=== PATIENT | female | born 1950 | race Caucasian/White ===

== ENCOUNTER 2016-04-26 12:58 | Observation (INO) | payer OTHER ==
--- NOTE | 2016-04-26 13:08 | CPEKG ---
Heart Rate: 80 RR Interval: 750 P-R Interval: 164 QRSD Interval: 82 QT Interval: 408 QTC Interval: 471 P [place]: 43 QRS [place]: 19 T Wave [place]: 43 EKG Severity - NORMAL ECG - EKG Impression: SINUS RHYTHM Electronically Signed By: Sandro Oliveira 28-Apr-2016 14:20:22
--- NOTE | 2016-04-26 13:24 | EDPHY ---
[id number] and diabetes, complaining of right-sided back pain for the last week and left-sided chest pain onset yesterday. She reports her back pain feels similar to a previous episode of pleurisy, so she began a previously- prescribed course of prednisone to treat that pain. Yesterday the pain moved to the left side of her chest and was localized to one point. This pain is now diffusely located across her left chest. She says she is unable to describe it, but it does feel similar to the pain she experienced prior to her last stent placement. Pain is associated with nausea but no fever. Her flu vaccination is up-to-date. She notes she had a nuclear stress test and echocardiogram last week , but has not received results yet. REVIEW OF SYSTEMS: Aside from elements discussed in the HPI, a comprehensive 10-point review of systems was reviewed and is negative. PMH: 1. Hypothyroidism 2. CAD with stents, last cath October 2014 stents were patent 3. Diabetes 4. Hypertension 5. SVT 6. Asthma 7. Obstructive sleep apnea 8. Appendectomy 9. Right total knee arthroplasty 10. Right total hip arthroplasty 11. Hyperlipidemia 12. Right rotator cuff surgery 13. Cholecystectomy 14. 15. Multiple laparotomies 16. Depression SOCIAL HISTORY: at bedside. Nonsmoker. No alcohol use. Prior medical records reviewed including admission 10/11/[address] Swift Minor Clinical Program Director: Dr. Garcia PHYSICAL EXAM: General:Patient is alert, obese female, in no acute distress. ENT:Eyes are normal to inspection. ENT inspection normal. Neck: Normal inspection. Full range of motion. Respiratory:No respiratory distress. Breath sounds normal bilaterally. Cardiovascular: Regular rate and rhythm. Strong peripheral pulses. Normal cap refill. Abdomen:The abdomen is nontender to palpation. There are no peritoneal signs. There are normal bowel sounds. Back: Normal to inspection. No tenderness to palpation. Skin: Normal color. No rash. Warm and dry. Extremities: Normal appearance. Full range of motion. Neuro: Oriented x3. Normal motor function. Normal sensory function. ED Course: This is a chronically-ill 65 y/o female with several medical conditions including CAD and diabetes who presents with a 1-week history of back pain and a 1-day history of chest pain. She reports the back pain feels similar to previous pleurisy, but the chest pain feels similar to the last time she required a cardiac stent. She had an echo and nuclear stress test last week, but has not received those results yet. Her exam is unremarkable. IV established. Labs drawn including CBC, CHEM, d-dimer, troponin. Chest x-ray and EKG ordered. The 12 lead EKG was interpreted by myself. Sinus rhythm rate 80. See hard copy and/or "tracemaster" electronic copy for interpretation. Study: Chest x-ray Indication: Pain Results: Chest x-ray was obtained. The results of the study are negative, similar to previous. Radiologist report pending. I viewed the images myself on the PACS system. 1345: D-dimer elevated at 3.43. Plan for CTA chest. 1350: Consulted with Dr. Daley, floor molder. He reports her stress test last week was abnormal and showed reversible ischemia in the anterior wall. He recommends admission and likely catheterization. 1427: Spoke with hospitalist service. Dr. Piper accepts admission for chest pain. 1445: Consulted with Dr. Garcia, cardiology. He will assess patient and determine if he will take her to the medical laboratory technician. 1500: Patient signed out to Dr. Barreto at shift change pending CTA results. Study: CTA of the Chest Indication: Pain, elevated d-dimer Results: CT scan of the chest was obtained. The results of the study are negative. The study was read by the radiologist, Dr. Mathew. I viewed the images myself on the PACS system. MDM: This patient presents with chest pain which is particularly concerning given her history of coronary artery disease, prior stents and recent positive nuclear stress test results. CTA is negative for pulmonary embolus or dissection. She will be admitted to the hospitalist service and will require cardiac catheterization. I see no evidence of pulmonary embolus, thoracic aortic dissection, pneumonia, pneumothorax or STEMI at this time. - Data Points Laboratory Results: Laboratory Results 04/26/16 13:13 04/26/16 13:13 04/26/16 13:13 WBC 14.66 H 10^3/uL (3.80-9.50) RBC 5.29 10^6/uL (4.18-5.33) Hgb 14.7 g/dL (12.6-16.3) Hct 42.4 % (38.0-47.0) MCV 80.2 L fL (81.5-99.8) MCH 27.8 L pg (27.9-34.1) MCHC 34.7 g/dL (32.4-36.7) RDW 14.9 % (11.5-15.2) Plt Count 314 10^3/uL (150-400) MPV 10.1 fL (8.7-11.7) Neut % (Auto) 70.4 % (39.3-74.2) Lymph % (Auto) 19.6 % (15.0-45.0) [place] % (Auto) 6.0 % (4.5-13.0) Eos % (Auto) 2.6 % (0.6-7.6) Baso % (Auto) 0.5 % (0.3-1.7) Nucleat RBC Rel Count 0.0 % (0.0-0.2) Absolute Neuts (auto) 10.32 H 10^3/uL (1.70-6.50) Absolute Lymphs (auto) 2.88 10^3/uL (1.00-3.00) Absolute Monos (auto) 0.88 H 10^3/uL (0.30-0.80) Absolute Eos (auto) 0.38 10^3/uL (0.03-0.40) Absolute Basos (auto) 0.07 10^3/uL (0.02-0.10) Absolute Nucleated RBC 0.00 10^3/uL (0-0.01) Immature Gran % 0.9 % (0.0-1.1) Immature Gran # 0.13 H 10^3/uL (0.00-0.10) D-Dimer 3.43 H ug/mLFEU (0.00-0.50) Sodium 128 L mEq/L (134-144) Potassium 4.4 mEq/L (3.5-5.2) Chloride 89 L mEq/L (97-110) Carbon Dioxide 24 mEq/l (22-31) Anion Gap 15 mEq/L (8-16) BUN 14 mg/dL (7-23) Creatinine 0.8 mg/dL (0.6-1.0) Estimated GFR > 60 Glucose 237 H mg/dL (70-100) Calcium 9.2 mg/dL (8.5-10.4) Troponin I < 0.012 ng/mL (0-0.034) General Time Seen by Provider: 04/26/16 13:03 Initial Vital Signs: Initial Vital Signs Temperature (C) 36.3 C 04/26/16 13:03 Heart Rate 80 04/26/16 13:03 Respiratory Rate 16 04/26/16 13:03 Blood Pressure 130/80 H 04/26/16 13:03 O2 Sat (%) 95 04/26/16 13:03 O2 Delivery Mode Room Air Allergies/Adverse Reactions: penicillin G [Penicillin G] Allergy (Intermediate, Verified 01/21/15 22:48) Rash Sulfa (Sulfonamide Antibiotics) Allergy (Intermediate, Verified 01/21/15 22:48) Rash adhesive [Adhesive] Allergy (Mild, Verified 01/21/15 22:48) Rash codeine [Codeine] Allergy (Mild, Verified 01/21/15 22:48) ? Rash; n/v hydrocodone [Hydrocodone] Allergy (Mild, Verified 01/21/15 22:48) makes her jumpy oxycodone [Oxycodone] Allergy (Mild, Verified 01/21/15 22:48) insomnia propoxyphene HCl [From Darvon] Allergy (Mild, Verified 01/21/15 22:48) n/v aspartame Allergy (Verified 03/04/15 16:37) Other-Enter Comments hydromorphone HCl [From Dilaudid] Allergy (Verified 01/21/15 22:48) tapentadol HCl [From Nucynta] Allergy (Verified 01/21/15 22:48) artificial sweeteners Allergy (Severe, Uncoded 01/12/12 15:41) seizurs Home Medications: Medication Instructions Recorded Albuterol [Proventil Inhaler HFA 1 - 2 puffs IH Q4 PRN 01/12/12 (*)] Clopidogrel Bisulfate [Plavix (*)] 75 mg PO DAILY 01/12/12 Dimenhydrinate [Dramamine] 50 mg PO DAILY PRN 01/12/12 Magnesium Oxide [Magnesium Oxide 800 mg PO DAILY 01/12/12 400 mg (*)] Montelukast Sodium [Singulair 10 10 mg PO HS 01/12/12 mg (*)] Nitroglycerin [Nitrostat 0.4 mg 0.4 mg SL PRN PRN 01/12/12 (*)] Cyclobenzaprine [Flexeril 10 MG 10 mg PO HS PRN 06/14/13 (*)] Herbals/Supplements -Info Only 1 each PO AD 06/14/13 Metformin HCl [Metformin 1000 mg] 1,000 mg PO BIDMEAL 06/14/13 diphenhydrAMINE [Benadryl 25 MG 50 mg PO DAILY PRN 06/14/13 (*)] Beclomethasone Dipropionate [Qnasl] 2 spray NS HS PRN 12/15/13 Ipratropium/Albuterol [Duoneb (*)] 3 ml IH QID PRN 12/15/13 Pantoprazole Sodium [Protonix 40mg 40 mg PO DAILY@0712/15/13 (*)] Metoprolol Tartrate [Lopressor 50 50 mg PO BID #60 tab 12/16/13 mg (*)] Aspirin [Aspirin 81mg (*)] 81 mg PO HS 10/24/14 Cetirizine [ZyrTEC 10 mg (*)] 10 mg PO DAILY PRN 10/24/14 Rifaximin [Xifaxan] 550 mg PO BID 10/24/14 sitaGLIPtin PHOSPHATE [Januvia 100 100 mg PO DAILY 10/24/14 MG (*)] Acetaminophen [Tylenol 325mg (*)] 650 mg PO Q6 PRN 03/04/15 CLINDAMYCIN HCL 600 mg PO ONCE PRN 03/04/15 Insulin Lispro [Humalog Kwikpen 8 - 14 unit SQ AC@03/04/15 U-100] Multivitamins [Multivitamin (*)] 1 each PO DAILY@03/04/15 PRIMIDONE 50 mg PO HS 03/04/15 Lisinopril 20 mg PO DAILY #30 tablet 03/05/15 Estradiol [Estrace Vaginal (*)] 1 gm VAG SUWE@10/11/15 Fluoxetine HCl [Prozac 40 mg] 40 mg PO DAILY 10/11/15 Fluticasone/Salmeter 500/50Mcg 1 puffs IH HS 10/11/15 [Advair 500/50 (*)] Insulin Glargine [Lantus 100 36 units SC HS 07/02/16 UNITS/ML (*)] Levothyroxine [Synthroid 75 mcg 75 mcg PO DAILY@10/11/15 (*)] Mag Hydrox/Al Hydrox/Simeth 1 tbs PO Q6PRN PRN 10/11/15 [Maalox Maximum Strength Suspension] Magnesium Oxide [Magnesium Oxide 400 mg PO DAILY@10/11/15 400 mg (*)] Nitrofurantoin Macrocrystal 100 mg PO BID PRN 10/11/15 [Macrodantin 100 mg (*)] Nystatin [Mycostatin Oral Liquid 5 ml PO TID 10/11/15 (*)] Promethazine HCl [Phenergan 12.5mg 12.5 mg PO TID PRN 10/11/15 tab] predniSONE [Prednisone] 10 mg PO HS PRN 10/11/15 Furosemide [Lasix 20 MG (*)] 20 mg PO DAILY #30 tab 10/12/15 amLODIPine BESYLATE [Norvasc 5 mg 5 mg PO DAILY #30 tab 10/12/15 (*)] Departure - Departure Disposition: Home, Routine, Self-Care Clinical Impression: Chest pain Qualifiers: Chest pain type: other chest pain Qualifier Code: (R07.89) Other chest pain Condition: Fair Report Scribed for: Casa Dennis Report Scribed by: Sujatha Santillan Date of Report: 04/26/16 Time of Report: 13:24 Physician Review and Approval Statement: Portions of this note were transcribed by an ED scribe. I personally performed the history, physical exam, and medical decision making; and confirm the accuracy of the information in the transcribed note.
[2016-04-26 13:27] LABS: % IMMATURE GRANULYOCYTES 0.9 % (0.0-1.1); ABSOLUTE IMMATURE GRANULOCYTES 0.13 10^3/uL (0.00-0.10); ADD DIFF? NO; ADD MORPH? NO; ADD SCAN? NO; ATYPICAL LYMPHOCYTE FLAG 10 (0-99); FRAGMENT RBC FLAG 0 (0-99); HEMATOCRIT 42.4 % (38.0-47.0); HEMOGLOBIN 14.7 g/dL (12.6-16.3); LEFT SHIFT FLG 0 (0-99); LIPEMIA HEMOLYSIS FLAG 90 (0-99); MEAN CELL HEMOGLOBIN 27.8 pg (27.9-34.1); MEAN CELL HEMOGLOBIN CONCENTR. 34.7 g/dL (32.4-36.7); MEAN CELL VOLUME 80.2 fL (81.5-99.8); MEAN PLATELET VOLUME 10.1 fL (8.7-11.7); PLATELET CLUMPS FLAG 0 (0-99); PLATELET COUNT 314 10^3/uL (150-400); RED BLOOD CELL COUNT 5.29 10^6/uL (4.18-5.33); RED CELL DISTRIBUTION WIDTH 14.9 % (11.5-15.2)
[2016-04-26 13:45] LABS: ANION GAP 15 mEq/L (8-16); CALCIUM 9.2 mg/dL (8.5-10.4); CARBON DIOXIDE 24 mEq/l (22-31); CHLORIDE 89 mEq/L (97-110); CREATININE 0.8 mg/dL (0.6-1.0); GLOMERULAR FILTRATION RATE > 60; GLUCOSE 237 mg/dL (70-100); POTASSIUM 4.4 mEq/L (3.5-5.2); SODIUM 128 mEq/L (134-144)
[2016-04-26] MEDS ORDERED: IOPAMIDOL (ISOVUE-370) 150 ML BTL IV ONE (13:57)
[2016-04-26 13:58] LABS: TROPONIN I < 0.012 ng/mL (0-0.034)
--- NOTE | 2016-04-26 14:23 | DX ---
Chest, PA and Lateral History: Chest pain. Nausea. History of coronary artery disease. Comparison: October 11, 2015, March 24, 2015 Findings: Lungs clear. Heart normal. Sylvia hilar bronchial wall thickening and mildly prominent lung v olumes are stable and suggest underlying COPD and or airways disease. Stable right upper lobe density is consistent with asymmetrical 1st costochondral cartilage ossification on the right. No pneumothor ax or pleural effusion. EKG leads overlie the chest. Impression: Possible airways disease. No pneumonia.
[2016-04-26] MEDS ORDERED: ASPIRIN 325 MG TAB PO ONE ×2 (14:53→17:30)
[2016-04-26] MEDS ORDERED: ONDANSETRON 4 MG/2 ML VIAL IVP PRN (14:53)
[2016-04-26] MEDS ORDERED: METOPROLOL TARTRATE 5 MG/5 ML INJ IVP SCH (15:00)
--- NOTE | 2016-04-26 15:08 | CT ---
CT Pulmonary Angiogram History: Chest pain, elevated D-dimer, currently on anticoagulation, history of pulmonary embolus. Comparison: PA and lateral chest from the same day, CT angiogram chest of October 11, 2015 and August 11 and June 09, 2011. Technique: Axial contrast-enhanced images were obtained through the chest following the uneventful in travenous administration of 90 mL Isovue-370. Creatinine is 0.8. Multiplanar reformations were perfo rmed through the pulmonary arteries. Dose reduction techniques were utilized. Findings: This is a good quality study with visualization of the vessels to the subsegmental level. T here is no pulmonary embolus. A 4-mm noncalcified left upper lobe nodule (series 5 image 30) is uncha nged since 2011. Diffuse peribronchial thickening is present. There is decreased mosaic attenuation, which could be related to airways disease/bronchitis. Heart size is normal. The interventricular sept um is normal. Coronary artery atherosclerosis is again noted. The aorta is normal caliber without dis section. No pathologically enlarged lymph nodes are identified. Mild degenerative change is present i n the spine. The liver is enlarged with nodular contour, suspicious for cirrhosis. Mildly prominent lymph nodes in the naresh hepatis are unchanged. Impression: 1. No visible pulmonary embolus. 2. Peribronchial thickening and mosaic attenuation, likely related to airways disease. 3. Nodular liver contour, which could be related to cirrhosis. 4. Additional findings as above. Findings discussed with Dr. Casa Dennis today at 1454 hours.
--- NOTE | 2016-04-26 15:14 | PDGENHP ---
[id number] with h/o CAD, hypertension and diabetes presents to ED with chest pain. She has known CAD with 2 prior stents. Her last angiogram was 2014 at which time there was minimal in-stent stenosis. She then underwent Lexiscan in 10/2015, which was indeterminate. Per ED hx, the patient underwent another stress test just last week, which showed some reversible ischemia. She presents to the ED reporting chest pain, onset at rest. She denies associated diaphoresis, though endorses some mild nausea. She describes the pain as substernal, left side of her chest with some radiation into both jaws. She denies SOB at rest, but reports increasing dyspnea with exertion over the past 2-3 weeks. No cough, no fevers. Initial troponin in the ED is negative. She has a h/o asthma and takes chronic prednisone. She is also an insulin dependent diabetic. She is followed by Dr. Prabhu Garcia, who was consulted by the ED physician. She will be admitted for probable angiogram. History Information - Allergies/Home Medication List Allergies/Adverse Reactions: penicillin G [Penicillin G] Allergy (Intermediate, Verified 01/21/15 22:48) Rash Sulfa (Sulfonamide Antibiotics) Allergy (Intermediate, Verified 01/21/15 22:48) Rash adhesive [Adhesive] Allergy (Mild, Verified 01/21/15 22:48) Rash codeine [Codeine] Allergy (Mild, Verified 01/21/15 22:48) ? Rash; n/v hydrocodone [Hydrocodone] Allergy (Mild, Verified 01/21/15 22:48) makes her jumpy oxycodone [Oxycodone] Allergy (Mild, Verified 01/21/15 22:48) insomnia propoxyphene HCl [From Darvon] Allergy (Mild, Verified 01/21/15 22:48) n/v aspartame Allergy (Verified 03/04/15 16:37) Other-Enter Comments hydromorphone HCl [From Dilaudid] Allergy (Verified 01/21/15 22:48) tapentadol HCl [From Nucynta] Allergy (Verified 01/21/15 22:48) artificial sweeteners Allergy (Severe, Uncoded 01/12/12 15:41) seizurs Home Medications: Albuterol [Proventil Inhaler HFA (*)] 1 - 2 puffs IH DAILY PRN 01/12/12 [Last Taken 11/03/14] Clopidogrel Bisulfate [Plavix (*)] 75 mg PO DAILY 01/12/12 [Last Taken 04/26/16] Dimenhydrinate [Dramamine] 50 mg PO DAILY PRN 01/12/12 [Last Taken 12/14/13] Magnesium Oxide [Magnesium Oxide 400 mg (*)] 800 mg PO DAILY 01/12/12 [Last Taken 04/26/16] Montelukast Sodium [Singulair 10 mg (*)] 10 mg PO HS 01/12/12 [Last Taken ] Nitroglycerin [Nitrostat 0.4 mg (*)] 0.4 mg SL PRN PRN 01/12/12 [Last Taken Unknown] Cyclobenzaprine [Flexeril 10 MG (*)] 10 mg PO HS PRN 06/14/13 [Last Taken ] Herbals/Supplements -Info Only 1 each PO AD 06/14/13 [Last Taken 03/04/15] diphenhydrAMINE [Benadryl 25 MG (*)] 50 mg PO DAILY PRN 06/14/13 [Last Taken ] Ipratropium/Albuterol [Duoneb (*)] 3 ml IH DAILY PRN 12/15/13 [Last Taken ] Aspirin [Aspirin 81mg (*)] 81 mg PO HS 10/24/14 [Last Taken 04/25/16] Rifaximin [Xifaxan] 550 mg PO BID 10/24/14 [Last Taken 04/26/16] CLINDAMYCIN HCL 600 mg PO ONCE PRN 03/04/15 [Last Taken 03/04/15] Insulin Lispro [Humalog Kwikpen U-100] 20 - 24 unit SQ AC@03/04/15 [Last Taken 04/26/16] Multivitamins [Multivitamin (*)] 1 each PO DAILY18 03/04/15 [Last Taken 04/25/16 ] PRIMIDONE 50 mg PO HS 03/04/15 [Last Taken 04/25/16] Estradiol [Estrace Vaginal (*)] 1 gm VAG SUWE@10/11/15 [Last Taken 04/25/16] Fluticasone/Salmeter 500/50Mcg [Advair 500/50 (*)] 1 puffs IH HS 10/11/15 [Last Taken 04/25/16] Insulin Glargine [Lantus 100 UNITS/ML (*)] 45 units SC HS 10/11/15 [Last Taken 04/25/16] Mag Hydrox/Al Hydrox/Simeth [Maalox Maximum Strength Suspension] 1 tbs PO DAILY PRN 10/11/15 [Last Taken Unknown] Magnesium Oxide [Magnesium Oxide 400 mg (*)] 400 mg PO DAILY18 10/11/15 [Last Taken 04/25/16] Nitrofurantoin Macrocrystal [Macrodantin 100 mg (*)] 100 mg PO BID PRN 10/11/15 [Last Taken Unknown] predniSONE [Prednisone] 10 mg PO HS PRN 10/11/15 [Last Taken 04/25/16] FLUoxetine [Prozac 20 MG (*)] 40 mg PO DAILY 04/26/16 [Last Taken 04/25/16] Ibuprofen [Motrin (*)] 400 - 800 mg PO DAILY PRN 04/26/16 [Last Taken 04/25/16 21:00 800MG] LISINOPRIL/HYDROCHLOROTHIAZIDE [PRINZIDE 20-25 MG TABLET] 1 each PO DAILY [Last Taken 04/26/16] Lansoprazole [Prevacid] 15 mg PO DAILY 04/26/16 [Last Taken 04/26/16] Levothyroxine [Synthroid 100 mcg (*)] 100 mcg PO DAILY06 04/26/16 [Last Taken ] Promethazine HCl [Phenergan 25mg (*)] 25 mg PO TID PRN 04/26/16 [Last Taken 21:00] amLODIPine BESYLATE [Norvasc 5 mg (*)] 5 mg PO HS 04/26/16 [Last Taken 04/25/16] metFORMIN HCL [Glucophage 500 mg (*)] 1,000 mg PO BIDMEAL 04/26/16 [Last Taken 04/26/16] traMADol [Ultram 50 mg (*)] 50 - 100 mg PO DAILY PRN 04/26/16 [Last Taken 21:00 100MG] I have personally reviewed and updated: family history, medical history, social history, surgical history - Past Medical History asthma, coronary artery disease, diabetes type 2, hypertension, hyperlipidemia, SVT - Surgical History Reports: cholecystectomy, coronary stent Additional surgical history: H/O Rt TKA, Rt MORENA, C-S, Rt rotator cuff surgery, prior angiogram with stent placement, multiple laparotomies - Family History Additional family history: Mom of complications from Parkinson's in her 80' s. Dad of heart failure in his 90's. 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 independently.) Review of Systems ROS: 10pt was reviewed & negative except for what was stated in HPI & below Physical Exam Temp Pulse Resp BP Pulse Ox 36.3 C 80 16 130/80 H 95 04/26/16 13:03 04/26/16 13:03 04/26/16 13:03 04/26/16 13:03 04/26/16 13:03 Constitutional: no apparent distress Eyes: PERRL Ears, Nose, Mouth, Throat: moist mucous membranes Cardiovascular: regular rate and rhythym, no murmur, rub, or gallop Respiratory: no respiratory distress, reduced air movement Gastrointestinal: normoactive bowel sounds, soft, non-tender abdomen Skin: warm Musculoskeletal: full muscle strength Neurologic: AAOx3 Psychiatric: interacting appropriately Lab Data & Imaging Review 04/26/16 13:13 04/26/16 13:13 WBC 14.66 10^3/uL (3.80-9.50) H 04/26/16 13:13 RBC 5.29 10^6/uL (4.18-5.33) 04/26/16 13:13 Hgb 14.7 g/dL (12.6-16.3) 04/26/16 13:13 Hct 42.4 % (38.0-47.0) 04/26/16 13:13 MCV 80.2 fL (81.5-99.8) L 04/26/16 13:13 MCH 27.8 pg (27.9-34.1) L 04/26/16 13:13 MCHC 34.7 g/dL (32.4-36.7) 04/26/16 13:13 RDW 14.9 % (11.5-15.2) 04/26/16 13:13 Plt Count 314 10^3/uL (150-400) 04/26/16 13:13 MPV 10.1 fL (8.7-11.7) 04/26/16 13:13 Neut % (Auto) 70.4 % (39.3-74.2) 04/26/16 13:13 Lymph % (Auto) 19.6 % (15.0-45.0) 04/26/16 13:13 [place] % (Auto) 6.0 % (4.5-13.0) 04/26/16 13:13 Eos % (Auto) 2.6 % (0.6-7.6) 04/26/16 13:13 Baso % (Auto) 0.5 % (0.3-1.7) 04/26/16 13:13 Nucleat RBC Rel Count 0.0 % (0.0-0.2) 04/26/16 13:13 Absolute Neuts (auto) 10.32 10^3/uL (1.70-6.50) H 04/26/16 13:13 Absolute Lymphs (auto) 2.88 10^3/uL (1.00-3.00) 04/26/16 13:13 Absolute Monos (auto) 0.88 10^3/uL (0.30-0.80) H 04/26/16 13:13 Absolute Eos (auto) 0.38 10^3/uL (0.03-0.40) 04/26/16 13:13 Absolute Basos (auto) 0.07 10^3/uL (0.02-0.10) 04/26/16 13:13 Absolute Nucleated RBC 0.00 10^3/uL (0-0.01) 04/26/16 13:13 Immature Gran % 0.9 % (0.0-1.1) 04/26/16 13:13 Immature Gran # 0.13 10^3/uL (0.00-0.10) H 04/26/16 13:13 D-Dimer 3.43 ug/mLFEU (0.00-0.50) H 04/26/16 13:13 Sodium 128 mEq/L (134-144) L 04/26/16 13:13 Potassium 4.4 mEq/L (3.5-5.2) 04/26/16 13:13 Chloride 89 mEq/L (97-110) L 04/26/16 13:13 Carbon Dioxide 24 mEq/l (22-31) 04/26/16 13:13 Anion Gap 15 mEq/L (8-16) 04/26/16 13:13 BUN 14 mg/dL (7-23) 04/26/16 13:13 Creatinine 0.8 mg/dL (0.6-1.0) 04/26/16 13:13 Estimated GFR > 60 04/26/16 13:13 Glucose 237 mg/dL (70-100) H 04/26/16 13:13 Calcium 9.2 mg/dL (8.5-10.4) 04/26/16 13:13 Troponin I < 0.012 ng/mL (0-0.034) 04/26/16 13:13 Assessment & Plan Assessment: Chest pain - Pt has h/o CAD with prior stents, on dual anti-platelet therapy, and recent abnormal nuclear stress test in the outpatient setting. Initial troponin is negative. EKG shows some non-specific T wave abnormalities (?mild wellen's T wave in V2), but no acute ischemic changes. Her pain is unchanged since arrival, 2-. -Admit to PCU -Give full dose ASA now -Keep NPO -IV Metoprolol -Nitropaste, morphine for pain control -Trend troponin, repeat EKG -Cards to consult, will defer anti-coagulation and timing of angiogram to them Hypertension - A bit elevated on arrival. -Will continue anti-hypertensives when taking po. -IV Metoprolol for now Hyperlipidemia - cont statin DM - bg >200 on arrival. last a1c in 02/2016 was 9.1. -basal / bolus insulin Hyponatremia - this is chronic, though a bit lower than her baseline of ~130 and seems to be trending down over past year. -Hold HCTZ -Fluid restrict, follow -check urine osm / urine Na H/O SVT - cont beta darian Asthma - on chronic steroids. no acute exacerbation, cont home meds / inhalers / prednisone Leukocytosis - chronic, suspect secondary to chronic steroid use BRIDGETT - cont home CPAP if available DVT PPLX - SCD's for now, defer lovenox as she will likely undergo intervention Full code Dispo - admit to inpt as will likely require angiogram and suspect >48 hrs hospitalization
[2016-04-26] MEDS ORDERED: D50W 25 GM/50 ML SYR IVP PRN ×2 (15:21→16:11)
[2016-04-26] MEDS ORDERED: PROMETHAZINE HCL 25 MG TAB PO PRN (15:29)
[2016-04-26] MEDS ORDERED: IPRATROPIUM/ALBUTEROL 3 ML DEYVIAL IH PRN (15:29)
[2016-04-26] MEDS ORDERED: ALBUTEROL 60 PUFFS/8 GM MDI IH PRN (15:29)
[2016-04-26] MEDS ORDERED: INSULIN REGULAR HUMAN 100 UNIT/ML SC SCH (15:30)
[2016-04-26] MEDS: ATORVASTATIN CALCIUM 40 MG TAB PO SCH (17:09)
[2016-04-26] MEDS: INSULIN LISPRO 100 UNIT/ML SC SCH (17:11)
[2016-04-26] MEDS: NITROGLYCERIN 2% 1 GM PACKET TP SCH ×2 (17:14→17:31)
[2016-04-26] MEDS ORDERED: MAG HYDROX/AL HYDROX/SIMETH 30 ML UDCUP PO PRN (18:00)
[2016-04-26] MEDS ORDERED: FLUTICASONE/SALMETER 500/50MCG DISKUS IH SCH (21:00)
[2016-04-26] MEDS ORDERED: INSULIN GLARGINE 100 UNITS/ML SYRINGE SC SCH (21:00)
[2016-04-26] MEDS ORDERED: predniSONE 10 MG TAB PO PRN (21:00)
[2016-04-26] MEDS ORDERED: amLODIPine BESYLATE 5 MG TAB PO SCH (21:00)
[2016-04-26] MEDS ORDERED: CYCLOBENZAPRINE 10 MG TAB PO PRN (21:00)
[2016-04-26] MEDS ORDERED: TEMAZEPAM 15 MG CAP PO PRN (21:09)
[2016-04-26] MEDS: METOPROLOL TARTRATE 50 MG TAB PO SCH (21:50)
[2016-04-26] MEDS ORDERED: traMADol 50 MG TAB PO PRN (22:25)
[2016-04-27] MEDS: NITROGLYCERIN 2% 1 GM PACKET TP SCH ×3 (00:13→12:20)
[2016-04-27 05:08] LABS: % IMMATURE GRANULYOCYTES 0.7 % (0.0-1.1); ABSOLUTE IMMATURE GRANULOCYTES 0.09 10^3/uL (0.00-0.10); ADD DIFF? NO; ADD MORPH? NO; ADD SCAN? NO; ATYPICAL LYMPHOCYTE FLAG 0 (0-99); FRAGMENT RBC FLAG 0 (0-99); HEMATOCRIT 39.9 % (38.0-47.0); HEMOGLOBIN 13.6 g/dL (12.6-16.3); LEFT SHIFT FLG 0 (0-99); LIPEMIA HEMOLYSIS FLAG 90 (0-99); MEAN CELL HEMOGLOBIN 27.6 pg (27.9-34.1); MEAN CELL HEMOGLOBIN CONCENTR. 34.1 g/dL (32.4-36.7); MEAN CELL VOLUME 81.1 fL (81.5-99.8); MEAN PLATELET VOLUME 10.4 fL (8.7-11.7); PLATELET CLUMPS FLAG 0 (0-99); PLATELET COUNT 257 10^3/uL (150-400); RED BLOOD CELL COUNT 4.92 10^6/uL (4.18-5.33); RED CELL DISTRIBUTION WIDTH 14.9 % (11.5-15.2)
[2016-04-27 05:16] LABS: INR 1.07 (0.83-1.16); PROTIME(PATIENT) 13.8 SEC (12.0-15.0)
[2016-04-27 05:17] LABS: APTT 27.2 SEC (23.0-38.0)
[2016-04-27 05:22] LABS: ANION GAP 12 mEq/L (8-16); CALCIUM 8.9 mg/dL (8.5-10.4); CARBON DIOXIDE 24 mEq/l (22-31); CHLORIDE 89 mEq/L (97-110); CHOLESTEROL 174 mg/dL (140-220); CHOLESTEROL/HDL RATIO 2.64 RATIO (1.00-4.44); CREATININE 0.7 mg/dL (0.6-1.0); GLOMERULAR FILTRATION RATE > 60; GLUCOSE 246 mg/dL (70-100); HIGH DENSITY LIPOPROTEIN 66 mg/dL (40-85); LDL/HDL RATIO 1.27 RATIO (1.00-3.22); LOW DENSITY LIPOPROTEIN 84 mg/dL (80-100); MAGNESIUM 1.5 mg/dL (1.6-2.3); NON-HIGH DENSITY LIPOPROTEIN 108 mg/dL (90-129); POTASSIUM 4.1 mEq/L (3.5-5.2); SODIUM 125 mEq/L (134-144); TRIGLYCERIDE 120 mg/dL (35-135); VERY LOW DENSITY LIPOPROTEINS 24 mg/dL (8-25)
[2016-04-27] MEDS ORDERED: LEVOTHYROXINE 100 MCG TAB PO SCH (06:00)
[2016-04-27] MEDS ORDERED: FAMOTIDINE 20 MG TAB ONE (07:41)
[2016-04-27] MEDS ORDERED: diphenhydrAMINE 25 MG CAP PO ONE ×2 (07:41→11:00)
[2016-04-27] MEDS ORDERED: ASPIRIN EC 325 MG TAB PO ONE ×2 (07:41→11:00)
[2016-04-27] MEDS ORDERED: DIAZEPAM 5 MG TAB ONE (07:41)
[2016-04-27] MEDS ORDERED: HEPARIN 10,000 UNIT/10 ML MDV ONE (07:51)
[2016-04-27] MEDS ORDERED: LIDOCAINE 1% 30 ML SDV ONE (07:51)
[2016-04-27] MEDS ORDERED: MIDAZOLAM 2 MG/2 ML VIAL ONE ×2 (07:51→09:45)
[2016-04-27] MEDS ORDERED: fentaNYL 100 MCG/2 ML INJ ONE ×2 (07:51→09:45)
[2016-04-27] MEDS ORDERED: VERAPAMIL 5 MG/2 ML VIAL ONE ×2 (07:51→08:52)
[2016-04-27] MEDS ORDERED: IOPAMIDOL (ISOVUE-370) 150 ML BTL IV ONE ×2 (07:52→08:52)
[2016-04-27] MEDS ORDERED: DIMENHYDRINATE 50 MG PO PRN (08:00)
[2016-04-27] MEDS: INSULIN LISPRO 100 UNIT/ML SC SCH ×2 (08:04→13:19)
[2016-04-27] MEDS: RIFAXIMIN 550 MG TAB PO SCH ×2 (08:04→12:18)
[2016-04-27] MEDS ORDERED: NITROGLYCERIN 1,500 MCG/15 ML VIAL MISC ONE (08:52)
[2016-04-27] MEDS ORDERED: MAGNESIUM OXIDE 400 MG TAB PO SCH ×2 (09:00→18:00)
[2016-04-27] MEDS ORDERED: CLOPIDOGREL BISULFATE 75 MG TAB PO SCH (09:00)
[2016-04-27] MEDS ORDERED: PANTOPRAZOLE SODIUM 40 MG TAB PO SCH (09:00)
[2016-04-27] MEDS ORDERED: FLUoxetine 20 MG CAP PO SCH (09:00)
--- NOTE | 2016-04-27 09:03 | SUROPNOTE ---
[facility] Operative Report - Surgery Date of Procedure: 04/27/2016 Indication: This woman is a 65 year old woman, with known coronary artery disease, s/p ramus intermedius stenting x2 in 2011 and 2013, hyperlipidemia, insulin dependent diabetes, BRIDGETT, asthma, paroxysmal atrial fibrillation, and PSVT, presenting to the emergency department yesterday with resting left anterior chest pain, described as similar in character to previous anginal symptoms. Eagle cardiovascular class IV angina. It is associated with 2-3 weeks of class III dyspnea on exertion. The patient had nuclear stress testing , which demonstrated diffuse T wave inversions with pharmacologic stress, a small mild intensity reversible defect involving the mid anterior wall consistent with ischemia, and transient ischemic dilation of the left ventricle with stress. These findings were new compared to previous stress testing. Right/ left heart catheterization indicated secondary to class IV angina, class III dyspnea, and high risk non-invasive testing. Procedures performed: 1. Right and Left heart catheterization with left ventricular and selective coronary angiography. 2. Fractional flow reserve in the right coronary artery. 3. Fractional flow reserve in the ramus intermedius. 4. Fractional flow reserve in the left anterior descending. Description of procedure: Description, risks, benefits and alternatives were discussed in detail. Informed consent was obtained. The patient was brought to the catheterization laboratory where a timeout was performed. The right arm was sterilely prepped and draped. 2% lidocaine utilized for local anesthetic. A 5-Peruvian hemostatic sheath was placed in the right brachial vein utilizing the IV site already present. A 5-Peruvian PWP catheter was utilized for right heart catheterization. Following the right heart catheterization, a 5/6-Peruvian slender hemostatic sheath placed right radial artery utilizing micropuncture technique. Intraarterial verapamil and intravenous heparin was administered. Diagnostic coronary angiography performed with 6-Peruvian, Grady left-3.5 and Grady right -4 catheter. All catheters passed over a 0.035 guidewire. By angiography, approximately 60% distal right coronary artery stenosis, a proximal LAD 60% eccentric stenosis, and an area of restenosis in the ramus oam-uh-axnsir stented segment, concerning for hemodynamically significant stenosis. Plan was made for fractional flow reserve of the RCA, ramus, and LAD for further evaluation. A 6-Peruvian Grady Right-4 guide catheter was utilized to engage the right coronary artery. [facility] Sergei FFR wire was advanced to just outside the guide catheter and pressure was equalized. FFR wire was placed in the right coronary artery. 140mcg*kg/min Adenosine was administered IV. FFR was 1.02, no significant change from resting. Next, a 6-Peruvian Grady Left-3.5 guide catheter was utilized to engage the left coronary system. [facility] Sergei FFR wire was advanced to just outside the guide catheter and pressure was equalized. FFR wire was placed in the ramus intermedius. 140mcg*kg/min Adenosine was administered IV. FFR was 0.97. FFR wire was placed in the left anterior descending. 140mcg*kg/min Adenosine was administered IV. FFR was 0.87. Pigtail catheter was then utilized for left heart catheterization and left ventricular angiography. Arterial sheath was removed and TR band was placed. Venous sheath was removed in the CVC. Findings: 1. Hemodynamics: Right atrial pressure mean of 10, right ventricular pressure 36/7/14 end-diastolic, pulmonary artery pressure 36/20, mean of 27, pulmonary capillary wedge pressure mean of 13 with no significant V wave. Aortic pressure 114/67, mean of 87, left ventricular pressure 113/12/25 end-diastolic. There was no significant pull back gradient across the aortic valve. 2. Saturations: Superior vena cava 73.3%, main pulmonary artery 69.5%, Ao 95.8% . Assumed Jeannie cardiac output 5.3L/min with cardiac index of 2.5L/min/m2. 3. Left ventricle: The left ventricle appears normal in size. Left ventricle is normal shape. Segmental wall motion is normal with an ejection fraction of 65 %. There are no filling defects or significant mitral regurgitation. The aortic root and ascending aorta appears normal, there is no dissection or aneurysm formation. 4. Coronary angiography: Left main: The left main is a moderate diameter, moderate length trifurcating vessel without significant disease. 5. Left anterior descending: This is a moderate sized vessel continuing around the apex. there is a small proximal and a moderate distal diagonal branch. There are luminal irregularities including a proximal eccentric 60% stenosis. FFR was 0.87, demonstrating non-hemodynamically significant disease. 6. Ramus Intermedius: A moderate-sized tortuous vessel with two previously placed stents, which both appear patent. There is an area of focal 50% restenosis in the lxy-yp-cmweeg stented segment. The ostial ramus intermedius has up to 30% disease. FFR was 0.97, demonstrating non-hemodynamically significant disease. 7. Circumflex: The circumflex is a fairly large nondominant vessel with a small marginal followed by a large marginal and then an AV groove branch. There are only mild luminal irregularities. 8. Right coronary: This is a moderately large dominant vessel with a moderate to large posterior descending and a moderate bifurcating posterolateral branch. The vessel has luminal irregularities and a 60% distal right coronary stenosis. FFR was 1.02, with no significant change from resting IFR. Overall Impression: 1. Lcwl-xw-pmpqsgaj coronary artery disease, with no hemodynamically significant disease in the RCA, LAD, or ramus intermedius by fractional flow reserve. 2. Mild pulmonary hypertension with pulmonary artery systolic pressure of 36mmHg. 3. Normal left ventricular systolic function with ejection fraction of 65%. Plan: 1. Continue aggressive risk modification, high dose statin therapy, management of hypertension and diabetes, and weight loss. 2. Consider Ranexa for small vessel disease. 3. Evaluation of other possible etiologies of chest pain and dyspnea. Portions of this chart were entered by a scribe. I have reviewed this chart and agree with the documentation. Report scribed for Dr. Prabhu Garcia. Report scribed by Sandra Hernandez.
[2016-04-27] MEDS ORDERED: ADENOSINE 90 MG/30 ML VIAL IV ONE (09:41)
[2016-04-27] MEDS ORDERED: ATROPINE SULFATE 1 MG/10 ML SYR IVP PRN (10:19)
[2016-04-27] MEDS ORDERED: DIAZEPAM 5 MG TAB PO ONE (11:00)
[2016-04-27] MEDS ORDERED: FAMOTIDINE 20 MG TAB PO ONE (11:00)
[2016-04-27] MEDS: METOPROLOL TARTRATE 50 MG TAB PO SCH (12:18)
[2016-04-27] MEDS: ATORVASTATIN CALCIUM 40 MG TAB PO SCH (12:18)
[2016-04-27] MEDS ORDERED: LISINOPRIL 20 MG TAB PO SCH (12:30)
[2016-04-27 12:47] VITALS: TEMP 97.7
[2016-04-27] MEDS ORDERED: AZITHROMYCIN 250 MG TAB PO SCH (13:00)
[2016-04-27 15:21] VITALS: BP 121/74; PULSE 74; RESP 16; O2SAT 91
[2016-04-27] MEDS ORDERED: diphenhydrAMINE 25 MG CAP PO PRN (15:29)
--- NOTE | 2016-04-27 20:00 | GDS ---
[f rep st] DISCHARGE SUMMARY DISCHARGE DIAGNOSES: 1. Acute bronchitis. 2. Nonobstructive coronary artery disease, status post previous stents. 3. Chest pain with false-positive stress test. 4. Hyponatremia 5. Diabetes type 2, uncontrolled. 6. Asthma. 7. Obstructive sleep apnea on CPAP. HISTORY: The patient is a 65-year-old female who presented with chest pain. This also had a pleuritic component. She had a recent outpatient stress test that showed reversible ischemia. She has a history of coronary artery disease and previous stents. She had a CT angiogram of the chest that was negative for PE. She had recurrence of chest pain, presented to the emergency room, and underwent cardiac catheterization with Dr. Garcia which showed moderate nonobstructive coronary artery disease. Her CT scan does show changes consistent with bronchitis and clinically I do suspect that is the underlying issue. I suspect her pleurisy is infectious in nature. She will be started on antibiotics. She was started on a statin for improved medical management of her coronary artery disease. She has a history of hyponatremia and did have low sodium here. Reportedly, her sodium runs about 130 and here was in the high 120s. Despite known hyponatremia, however, she continued on hydrochlorothiazide. This was discontinued. Her urine sodium is elevated at 62, although this is difficult to interpret since she is on a chronic diuretic. Regardless, the hydrochlorothiazide needs to be discontinued. We will have her follow fluid restriction. We will however follow her serum sodium closely as an outpatient, although I do anticipate will improve with discontinuation of that diuretic. If she does require a diuretic in the future, would recommend Lasix. DISCHARGE MEDICATIONS: Please see computer record for full detailed list. New medications: 1. Azithromycin via Z-Ashu to be completed for acute bronchitis. 2. Lisinopril to be taken 20 mg p.o. daily. Prescription given that did not include a combination with hydrochlorothiazide. 3. Lipitor 40 mg p.o. daily. ADDITIONAL DISCHARGE INSTRUCTIONS: 1. Stop hydrochlorothiazide due to hyponatremia. 2. Fluid restriction to 2000 mL per day. 3. Recheck serum sodium level in 1 week. Patient seen and examined by me on day of discharge. /[id number]/MODL MTDD
[2016-04-27] MEDS ORDERED: ASPIRIN 81 MG CHEWABLE TAB PO SCH (21:00)
[2016-04-27] MEDS ORDERED: MONTELUKAST SODIUM 10 MG TAB PO SCH (21:00)
[2016-04-27] MEDS ORDERED: PRIMIDONE 50 MG TAB PO SCH (21:00)
[2016-04-27] MEDS ORDERED: FLUTICASONE/SALMETER 500/50MCG DISKUS IH SCH (21:00)
== END 2016-04-27 16:02 | disposition home or self-care (01) ==
LOC: F2W 15:26
PROVIDERS: ADMIT Hospitalist; ATTEND Hospitalist
PROC: 4A023N8 Measurement of Cardiac Sampling and Pressure, Bilateral, Percutaneous Approach (ICD-10-PCS; principal; 2016-04-26)
PROC: B2151ZZ Fluoroscopy of Left Heart using Low Osmolar Contrast (ICD-10-PCS; 2016-04-26)
PROC: B2111ZZ Fluoroscopy of Multiple Coronary Arteries using Low Osmolar Contrast (ICD-10-PCS; 2016-04-26)
PROC: 4A1335C Monitoring of Arterial Flow, Coronary, Percutaneous Approach (ICD-10-PCS; 2016-04-26)
DX: J20.9 Acute bronchitis, unspecified (principal); R07.89 Other chest pain; I25.10 Atherosclerotic heart disease of native coronary artery without angina pectoris; Z95.5 Presence of coronary angioplasty implant and graft; I27.2 Other secondary pulmonary hypertension; R94.39 Abnormal result of other cardiovascular function study; E87.1 Hypo-osmolality and hyponatremia; E11.9 Type 2 diabetes mellitus without complications; D72.829 Elevated white blood cell count, unspecified; J45.909 Unspecified asthma, uncomplicated; I47.1 Supraventricular tachycardia; G47.33 Obstructive sleep apnea (adult) (pediatric); E03.9 Hypothyroidism, unspecified; I10 Essential (primary) hypertension; E78.5 Hyperlipidemia, unspecified; F32.9 Major depressive disorder, single episode, unspecified; Z96.651 Presence of right artificial knee joint; Z96.641 Presence of right artificial hip joint; Z79.4 Long term (current) use of insulin; Z79.02 Long term (current) use of antithrombotics/antiplatelets; Z82.49 Family history of ischemic heart disease and other diseases of the circulatory system; Z88.0 Allergy status to penicillin; Z88.2 Allergy status to sulfonamides
CPT/HCPCS: 71020; 71275; 93005; 93460; 93571; 93572; 99285; C1769; C1887; G0378; J0153; J1644; J1815; J2250; J3010; Q9967

== ENCOUNTER → 2016-08-02 | Outpatient (CLI) | payer OTHER | LOC: BMCIMAGING 14:19 | PROVIDERS: ATTEND Internal Medicine | DX: M79.605 Pain in left leg (principal) ==

== ENCOUNTER → 2016-09-28 | Outpatient (CLI) | payer OTHER | LOC: BMCIMAGING 15:06 | PROVIDERS: ATTEND Internal Medicine | DX: R50.9 Fever, unspecified (principal) ==

== ENCOUNTER → 2016-12-09 | Outpatient (CLI) | payer OTHER | LOC: FIMAGING 16:58 | PROVIDERS: ATTEND Internal Medicine Critical Care Medicine | DX: J44.9 Chronic obstructive pulmonary disease, unspecified (principal) ==

== ENCOUNTER → 2017-04-14 | Outpatient (CLI) | payer OTHER | LOC: BMCIMAGING 14:19 | PROVIDERS: ATTEND Internal Medicine | DX: R06.02 Shortness of breath (principal) ==

== ENCOUNTER → 2017-06-01 | Outpatient (CLI) | payer OTHER | LOC: FIMAGING 14:57 | PROVIDERS: ATTEND Internal Medicine | DX: J45.909 Unspecified asthma, uncomplicated (principal); Z79.01 Long term (current) use of anticoagulants ==

== ENCOUNTER → 2017-07-06 | Outpatient (CLI) | payer OTHER | LOC: FIMAGING 10:33 | PROVIDERS: ATTEND Physician Assistant | DX: K74.60 Unspecified cirrhosis of liver (principal) ==

== ENCOUNTER 2017-07-25 13:26 | Observation (INO) | payer OTHER ==
--- NOTE | 2017-07-25 13:42 | EDPHY ---
H & P Time Seen by Provider: 07/25/17 13:35 HPI/ROS: Chief complaint. Chest pain HPI. 67-year-old female here by EMS with chest discomfort. Patient has a history of coronary artery disease with stents. This morning at about 11:30 a.m. She developed left anterior chest discomfort that radiates to her left jaw. Somewhat dizzy. She has asthma and chronic shortness of breath and she did not notice any change in her breathing. She did not notice any difference with exertion, change of position, breathing. However EMS gave the patient nitroglycerin and she got relief. Now her discomfort is coming back with radiation to her jaw. She says this is similar to previous coronary artery disease episodes. She has had a recent respiratory infection. No unusual leg pain or swelling. She was also given aspirin prior to arrival ROS Constitutional. no fever/chills, no weakness Eyes. no problems with vision ENT. no sore throat, no nasal drainage Cardiovascular. Chest pain Respiratory. no shortness of breath, no cough Abdominal. no abdominal pain, no nausea/vomiting, no diarrhea . no problems urinating MS. no calf pain/swelling, no neck/back pain, no joint pain Skin. no rash Lymph. no swollen glands Neuro. no headache, no dizziness, no difficulty walking or with speech Past Medical/Surgical History: Past medical history significant for coronary artery disease with stents, knee and hip replacements, asthma, diabetes, hypothyroid, sleep apnea, cholecystectomy Social History: , nonsmoker, no alcohol Smoking Status: Never smoked Physical Exam: General Appearance: Alert well-developed female mild distress vital signs significant for O2 saturation 91% on room air Eyes: Pupils equal and round no pallor or injection. ENT, Mouth: Mucous membranes are moist. Respiratory: There are no retractions, lungs are clear to auscultation. Cardiovascular: Regular rate and rhythm. Gastrointestinal: Abdomen is soft and nontender, no masses, bowel sounds normal. Neurological: Awake and alert, sensory and motor exams grossly normal. Skin: Warm and dry, no rashes. Musculoskeletal: Neck is supple nontender. Extremities symmetrical, full range of motion. Psychiatric: Patient is oriented X 3, there is no agitation. Constitutional: Initial Vital Signs Heart Rate 81 07/25/17 13:31 Respiratory Rate 16 07/25/17 13:31 Blood Pressure 148/81 H 07/25/17 13:31 O2 Sat (%) 91 L 07/25/17 13:31 O2 Delivery Mode Room Air Allergies/Adverse Reactions: penicillin G [Penicillin G] Allergy (Intermediate, Verified 01/21/15 22:48) Rash Sulfa (Sulfonamide Antibiotics) Allergy (Intermediate, Verified 01/21/15 22:48) Rash adhesive [Adhesive] Allergy (Mild, Verified 01/21/15 22:48) Rash codeine [Codeine] Allergy (Mild, Verified 01/21/15 22:48) ? Rash; n/v hydrocodone [Hydrocodone] Allergy (Mild, Verified 01/21/15 22:48) makes her jumpy oxycodone [Oxycodone] Allergy (Mild, Verified 01/21/15 22:48) insomnia propoxyphene HCl [From Darvon] Allergy (Mild, Verified 01/21/15 22:48) n/v aspartame Allergy (Verified 03/04/15 16:37) Other-Enter Comments hydromorphone HCl [From Dilaudid] Allergy (Verified 01/21/15 22:48) tapentadol HCl [From Nucynta] Allergy (Verified 01/21/15 22:48) artificial sweeteners Allergy (Severe, Uncoded 01/12/12 15:41) seizurs Home Medications: Medication Instructions Recorded Albuterol [Proventil Inhaler HFA 1 - 2 puffs IH DAILY PRN 01/12/12 (*)] Clopidogrel Bisulfate [Plavix (*)] 75 mg PO DAILY 01/12/12 Dimenhydrinate [Dramamine] 50 mg PO DAILY PRN 01/12/12 Magnesium Oxide [Magnesium Oxide 800 mg PO DAILY 01/12/12 400 mg (*)] Montelukast Sodium [Singulair 10 10 mg PO HS 01/12/12 mg (*)] Nitroglycerin [Nitrostat 0.4 mg 0.4 mg SL PRN PRN 01/12/12 (*)] Cyclobenzaprine [Flexeril 10 MG 10 mg PO HS PRN 06/14/13 (*)] Herbals/Supplements -Info Only 1 each PO AD 06/14/13 diphenhydrAMINE [Benadryl 25 MG 50 mg PO DAILY PRN 06/14/13 (*)] Ipratropium/Albuterol [Duoneb (*)] 3 ml IH DAILY PRN 12/15/13 Metoprolol Tartrate [Lopressor 50 50 mg PO BID #60 tab 12/16/13 mg (*)] Aspirin [Aspirin 81mg (*)] 81 mg PO HS 10/24/14 Rifaximin [Xifaxan] 550 mg PO BID 10/24/14 Insulin Lispro [Humalog Kwikpen 20 - 24 unit SQ AC@,03/04/15 U-100] Multivitamins [Multivitamin (*)] 1 each PO DAILY18 03/04/15 PRIMIDONE 50 mg PO HS 03/04/15 Estradiol [Estrace Vaginal (*)] 1 gm VAG SUWE@09 10/11/15 Fluticasone/Salmeter 500/50Mcg 1 puffs IH HS 10/11/15 [Advair 500/50 (*)] Insulin Glargine [Lantus 100 45 units SC HS 10/11/15 UNITS/ML (*)] Mag Hydrox/Al Hydrox/Simeth 1 tbs PO DAILY PRN 10/11/15 [Maalox Maximum Strength Suspension] Magnesium Oxide [Magnesium Oxide 400 mg PO DAILY18 10/11/15 400 mg (*)] Nitrofurantoin Macrocrystal 100 mg PO BID PRN 10/11/15 [Macrodantin 100 mg] FLUoxetine [Prozac 20 MG (*)] 40 mg PO DAILY 04/26/16 Ibuprofen [Motrin (*)] 400 - 800 mg PO DAILY PRN 04/26/16 Lansoprazole [Prevacid] 15 mg PO DAILY 04/26/16 Levothyroxine [Synthroid 100 mcg 100 mcg PO DAILY06 04/26/16 (*)] Promethazine HCl [Phenergan 25mg 25 mg PO TID PRN 04/26/16 (*)] amLODIPine BESYLATE [Norvasc 5 mg 5 mg PO HS 04/26/16 (*)] metFORMIN HCL [Glucophage 500 mg 1,000 mg PO BIDMEAL 04/26/16 (*)] traMADol [Ultram 50 mg (*)] 50 - 100 mg PO DAILY PRN 04/26/16 Atorvastatin Calcium [Lipitor 40 40 mg PO DAILY #30 tab 04/27/16 mg (*)] Lisinopril [Zestril 20 mg (*)] 20 mg PO DAILY #30 tab 04/27/16 Advair 500/50 (*) 07/25/17 Lasix 07/25/17 Resveratrol 07/25/17 Spiriva Handihaler 07/25/17 Medical Decision Making - Diagnostics EKG Interpretation: EKG interpreted by me shows normal sinus rhythm with normal interval and axis. QRS is normal there is no significant ST elevation or depression. There is no arrhythmia. The rate is 78 Imaging Results: Imaging Impressions Chest X-Ray 07/25/17 14:04 Impression: 1. Indeterminate heart size without evidence of acute CHF. 2. Stable right first rib costochondral junction calcification (see CT April 2016). Procedures: IV normal saline, monitor Nitroglycerin sublingually and nitro paste is applied ED Course/Re-evaluation: Re-evaluation 3:05 a.m.. Patient is stable. She does have slight continuing chest discomfort. Patient, and her and I discussed imaging and lab results. We discussed treatment plan including recommendation for admission. She expresses understanding and agreement I consulted and discussed the case with Dr. Jewell, cardiology who will see the patient in consultation I consulted us the case with Dr. Piper, hospitalist who agrees to the admission Differential Diagnosis: Patient has known coronary artery disease and her symptoms are consistent with previous cardiac ischemia. Her symptoms were resolved with nitroglycerin but then do seem to be coming back. So far the patient has a nonacute appearing EKG and a normal troponin. I suspect that this is acute coronary syndrome. No evidence for pneumonia or pneumothorax - Data Points Laboratory Results: Laboratory Results 07/25/17 13:26 07/25/17 13:26 07/25/17 07/25/17 07/25/17 13:26 13:26 13:26 WBC 8.06 10^3/uL 10^3/uL (3.80-9.50) RBC 4.77 10^6/uL 10^6/uL (4.18-5.33) Hgb 13.2 g/dL g/dL (12.6-16.3) Hct 41.4 % % (38.0-47.0) MCV 86.8 fL fL (81.5-99.8) MCH 27.7 pg L pg (27.9-34.1) MCHC 31.9 g/dL L g/dL (32.4-36.7) RDW 15.4 % H % (11.5-15.2) Plt Count 197 10^3/uL 10^3/uL (150-400) MPV 10.8 fL fL (8.7-11.7) Neut % (Auto) 62.4 % % (39.3-74.2) Lymph % (Auto) 21.5 % % (15.0-45.0) Lee % (Auto) 6.6 % % (4.5-13.0) Eos % (Auto) 8.3 % H % (0.6-7.6) Baso % (Auto) 0.7 % % (0.3-1.7) Nucleat RBC Rel Count 0.0 % % (0.0-0.2) Absolute Neuts (auto) 5.03 10^3/uL 10^3/uL (1.70-6.50) Absolute Lymphs (auto) 1.73 10^3/uL 10^3/uL (1.00-3.00) Absolute Monos (auto) 0.53 10^3/uL 10^3/uL (0.30-0.80) Absolute Eos (auto) 0.67 10^3/uL H 10^3/uL (0.03-0.40) Absolute Basos (auto) 0.06 10^3/uL 10^3/uL (0.02-0.10) Absolute Nucleated RBC 0.00 10^3/uL 10^3/uL (0-0.01) Immature Gran % 0.5 % % (0.0-1.1) Immature Gran # 0.04 10^3/uL 10^3/uL (0.00-0.10) PT 13.7 SEC SEC (12.0-15.0) INR 1.03 (0.83-1.16) APTT 30.9 SEC SEC (23.0-38.0) Sodium 138 mEq/L mEq/L (135-145) Potassium 4.4 mEq/L mEq/L (3.5-5.2) Chloride 99 mEq/L mEq/L (97-110) Carbon Dioxide 25 mEq/l mEq/l (22-31) Anion Gap 14 mEq/L mEq/L (8-16) BUN 9 mg/dL mg/dL (7-23) Creatinine 0.6 mg/dL mg/dL (0.6-1.0) Estimated GFR > 60 Glucose 180 mg/dL H mg/dL (70-100) Calcium 9.0 mg/dL mg/dL (8.5-10.4) Troponin I < 0.012 ng/mL ng/mL (0.000-0.034) NT-Pro-B Natriuret Pep 190 pg/mL H pg/mL (0-125) Medications Given: Discontinued Medications Sodium Chloride (Ns) 500 mls @ 1,000 mls/hr IV EDNOW ONE PRN Reason: Protocol Stop: 07/25/17 14:32 Last Admin: 07/25/17 15:13 Dose: Not Given Nitroglycerin (Nitro-Bid 2%) 1 inch TP EDNOW ONE Stop: 07/25/17 14:04 Last Admin: 07/25/17 14:27 Dose: 1 inch Departure - Departure Disposition: [facility] Inpatient Acute Clinical Impression: Acute coronary syndrome Condition: Fair Referrals: Patient,NotPresent [Primary Care Provider] - As per Instructions
[2017-07-25] MEDS ORDERED: NITROGLYCERIN 2% 1 GM PACKET TP ONE (14:03)
[2017-07-25] MEDS ORDERED: NS 500 ML IV ONE (14:03)
[2017-07-25] MEDS ORDERED: NITROGLYCERIN 0.4 MG BTL SL PRN ×2 (14:03→15:42)
--- NOTE | 2017-07-25 14:04 | CPEKG ---
Heart Rate: 78 RR Interval: 769 P-R Interval: 160 QRSD Interval: 82 QT Interval: 412 QTC Interval: 470 P [place]: 42 QRS [place]: 44 T Wave [place]: 20 EKG Severity - NORMAL ECG - EKG Impression: SINUS RHYTHM Electronically Signed By: Bobby Snow 25-Jul-2017 15:30:13
[2017-07-25 14:13] LABS: PLATELET COUNT 197 10^3/uL (150-400)
[2017-07-25 14:23] LABS: INR 1.03 (0.83-1.16); PROTIME(PATIENT) 13.7 SEC (12.0-15.0)
[2017-07-25] MEDS ORDERED: ASPIRIN EC 325 MG TAB PO ONE (15:42)
[2017-07-25] MEDS ORDERED: diphenhydrAMINE 25 MG CAP PO ONE (15:42)
[2017-07-25] MEDS ORDERED: DIAZEPAM 5 MG TAB PO ONE (15:42)
[2017-07-25] MEDS ORDERED: FAMOTIDINE 20 MG TAB PO ONE (15:42)
[2017-07-25] MEDS ORDERED: ACETAMINOPHEN 325 MG TAB PO PRN (15:42)
[2017-07-25] MEDS ORDERED: TEMAZEPAM 15 MG CAP PO PRN (15:42)
[2017-07-25] MEDS ORDERED: ONDANSETRON 4 MG/2 ML VIAL IVP PRN (16:06)
[2017-07-25] MEDS ORDERED: ONDANSETRON DISINTEGRATING 4 MG TAB PO PRN (16:06)
--- NOTE | 2017-07-25 16:19 | PDGENHP ---
History and Physical - Chief Complaint chest pain - History of Present Illness 67 yo female with h/o CAD with prior stents and CABG presents to ED with chest pain. Onset was around lunch time and occurred while she was sitting in her chair reading. Denies associated SOB or diaphoresis. Pain radiated across her left chest and into her neck. She had some associated nausea, no vomiting. She received ASA and NTG by EMS, followed by repeat NTG in ED and her pain is currently 2/10. Last angiogram was 04/2016, which showed mild to moderate CAD without hemodynamically significant disease in her RCA, LAD and ramus intermed. In the ED, her EKG is non-ischemic. Her initial troponin is negative. Cardiology consult was obtained and she is admitted to the PCU for further management. History Information - Allergies/Home Medication List Allergies/Adverse Reactions: penicillin G [Penicillin G] Allergy (Intermediate, Verified 01/21/15 22:48) Rash Sulfa (Sulfonamide Antibiotics) Allergy (Intermediate, Verified 01/21/15 22:48) Rash adhesive [Adhesive] Allergy (Mild, Verified 01/21/15 22:48) Rash codeine [Codeine] Allergy (Mild, Verified 01/21/15 22:48) ? Rash; n/v hydrocodone [Hydrocodone] Allergy (Mild, Verified 01/21/15 22:48) makes her jumpy oxycodone [Oxycodone] Allergy (Mild, Verified 01/21/15 22:48) insomnia propoxyphene HCl [From Darvon] Allergy (Mild, Verified 01/21/15 22:48) n/v aspartame Allergy (Verified 03/04/15 16:37) Other-Enter Comments hydromorphone HCl [From Dilaudid] Allergy (Verified 01/21/15 22:48) tapentadol HCl [From Nucynta] Allergy (Verified 01/21/15 22:48) artificial sweeteners Allergy (Severe, Uncoded 01/12/12 15:41) seizurs Home Medications: Albuterol [Proventil Inhaler HFA (*)] 1 - 2 puffs IH DAILY PRN 01/12/12 [Last Taken 11/03/14] Clopidogrel Bisulfate [Plavix (*)] 75 mg PO DAILY 01/12/12 [Last Taken 04/26/16] Dimenhydrinate [Dramamine] 50 mg PO DAILY PRN 01/12/12 [Last Taken 12/14/13] Magnesium Oxide [Magnesium Oxide 400 mg (*)] 800 mg PO DAILY 01/12/12 [Last Taken 04/26/16] Montelukast Sodium [Singulair 10 mg (*)] 10 mg PO HS 01/12/12 [Last Taken ] Nitroglycerin [Nitrostat 0.4 mg (*)] 0.4 mg SL PRN PRN 01/12/12 [Last Taken Unknown] Cyclobenzaprine [Flexeril 10 MG (*)] 10 mg PO HS PRN 06/14/13 [Last Taken ] Herbals/Supplements -Info Only 1 each PO AD 06/14/13 [Last Taken 03/04/15] diphenhydrAMINE [Benadryl 25 MG (*)] 50 mg PO DAILY PRN 06/14/13 [Last Taken ] Ipratropium/Albuterol [Duoneb (*)] 3 ml IH DAILY PRN 12/15/13 [Last Taken ] Aspirin [Aspirin 81mg (*)] 81 mg PO HS 10/24/14 [Last Taken 04/25/16] Rifaximin [Xifaxan] 550 mg PO BID 10/24/14 [Last Taken 04/26/16] Insulin Lispro [Humalog Kwikpen U-100] 20 - 24 unit SQ AC@03/04/15 [Last Taken 04/26/16] Multivitamins [Multivitamin (*)] 1 each PO DAILY18 03/04/15 [Last Taken 04/25/16 ] PRIMIDONE 50 mg PO HS 03/04/15 [Last Taken 04/25/16] Estradiol [Estrace Vaginal (*)] 1 gm VAG SUWE@10/11/15 [Last Taken 04/25/16] Fluticasone/Salmeter 500/50Mcg [Advair 500/50 (*)] 1 puffs IH HS 10/11/15 [Last Taken 04/25/16] Insulin Glargine [Lantus 100 UNITS/ML (*)] 45 units SC HS 10/11/15 [Last Taken 04/25/16] Mag Hydrox/Al Hydrox/Simeth [Maalox Maximum Strength Suspension] 1 tbs PO DAILY PRN 10/11/15 [Last Taken Unknown] Magnesium Oxide [Magnesium Oxide 400 mg (*)] 400 mg PO DAILY18 10/11/15 [Last Taken 04/25/16] Nitrofurantoin Macrocrystal [Macrodantin 100 mg] 100 mg PO BID PRN 10/11/15 [ Last Taken Unknown] FLUoxetine [Prozac 20 MG (*)] 40 mg PO DAILY 04/26/16 [Last Taken 04/25/16] Ibuprofen [Motrin (*)] 400 - 800 mg PO DAILY PRN 04/26/16 [Last Taken 04/25/16 21:00 800MG] Lansoprazole [Prevacid] 15 mg PO DAILY 04/26/16 [Last Taken 04/26/16] Levothyroxine [Synthroid 100 mcg (*)] 100 mcg PO DAILY06 04/26/16 [Last Taken ] Promethazine HCl [Phenergan 25mg (*)] 25 mg PO TID PRN 04/26/16 [Last Taken 21:00] amLODIPine BESYLATE [Norvasc 5 mg (*)] 5 mg PO HS 04/26/16 [Last Taken 04/25/16] metFORMIN HCL [Glucophage 500 mg (*)] 1,000 mg PO BIDMEAL 04/26/16 [Last Taken 04/26/16] traMADol [Ultram 50 mg (*)] 50 - 100 mg PO DAILY PRN 04/26/16 [Last Taken 21:00 100MG] Advair 500/50 (*) 07/25/17 [Last Taken Unknown] Lasix 07/25/17 [Last Taken Unknown] Resveratrol 07/25/17 [Last Taken Unknown] Spiriva Handihaler 07/25/17 [Last Taken Unknown] I have personally reviewed and updated: family history, medical history, social history, surgical history - Past Medical History asthma, coronary artery disease, diabetes type 2, hypertension, hyperlipidemia, SVT - Surgical History Reports: cholecystectomy, coronary stent Additional surgical history: H/O Rt TKA, Rt MORENA, C-S, Rt rotator cuff surgery, prior angiogram with stent placement, multiple laparotomies - Family History Additional family history: Mom of complications from Parkinson's in her 80' s. Dad of heart failure in his 90's. - Social History Smoking Status: Never smoked Alcohol Use: None Drug Use: None Additional social history: Lives independently. Review of Systems Review of Systems: ROS: 10pt was reviewed & negative except for what was stated in HPI & below Physical Exam Physical Exam: Temp Pulse Resp BP Pulse Ox 36.9 C 74 16 138/76 H 96 07/25/17 14:00 07/25/17 14:00 07/25/17 14:00 07/25/17 14:00 07/25/17 14:00 Constitutional: no apparent distress Eyes: PERRL Ears, Nose, Mouth, Throat: moist mucous membranes Cardiovascular: regular rate and rhythym, no murmur, rub, or gallop Respiratory: no respiratory distress, clear to auscultation Gastrointestinal: normoactive bowel sounds, soft, non-tender abdomen Skin: warm Musculoskeletal: full muscle strength Neurologic: AAOx3 Psychiatric: interacting appropriately Lab Data & Imaging Review 07/25/17 13:26 07/25/17 13:26 WBC 8.06 10^3/uL (3.80-9.50) 07/25/17 13:26 RBC 4.77 10^6/uL (4.18-5.33) 07/25/17 13:26 Hgb 13.2 g/dL (12.6-16.3) 07/25/17 13:26 Hct 41.4 % (38.0-47.0) 07/25/17 13:26 MCV 86.8 fL (81.5-99.8) 07/25/17 13:26 MCH 27.7 pg (27.9-34.1) L 07/25/17 13:26 MCHC 31.9 g/dL (32.4-36.7) L 07/25/17 13:26 RDW 15.4 % (11.5-15.2) H 07/25/17 13:26 Plt Count 197 10^3/uL (150-400) 07/25/17 13:26 MPV 10.8 fL (8.7-11.7) 07/25/17 13:26 Neut % (Auto) 62.4 % (39.3-74.2) 07/25/17 13:26 Lymph % (Auto) 21.5 % (15.0-45.0) 07/25/17 13:26 [place] % (Auto) 6.6 % (4.5-13.0) 07/25/17 13:26 Eos % (Auto) 8.3 % (0.6-7.6) H 07/25/17 13:26 Baso % (Auto) 0.7 % (0.3-1.7) 07/25/17 13:26 Nucleat RBC Rel Count 0.0 % (0.0-0.2) 07/25/17 13:26 Absolute Neuts (auto) 5.03 10^3/uL (1.70-6.50) 07/25/17 13:26 Absolute Lymphs (auto) 1.73 10^3/uL (1.00-3.00) 07/25/17 13:26 Absolute Monos (auto) 0.53 10^3/uL (0.30-0.80) 07/25/17 13:26 Absolute Eos (auto) 0.67 10^3/uL (0.03-0.40) H 07/25/17 13:26 Absolute Basos (auto) 0.06 10^3/uL (0.02-0.10) 07/25/17 13:26 Absolute Nucleated RBC 0.00 10^3/uL (0-0.01) 07/25/17 13:26 Immature Gran % 0.5 % (0.0-1.1) 07/25/17 13:26 Immature Gran # 0.04 10^3/uL (0.00-0.10) 07/25/17 13:26 PT 13.7 SEC (12.0-15.0) 07/25/17 13:26 INR 1.03 (0.83-1.16) 07/25/17 13:26 APTT 30.9 SEC (23.0-38.0) 07/25/17 13:26 Sodium 138 mEq/L (135-145) 07/25/17 13:26 Potassium 4.4 mEq/L (3.5-5.2) 07/25/17 13:26 Chloride 99 mEq/L (97-110) 07/25/17 13:26 Carbon Dioxide 25 mEq/l (22-31) 07/25/17 13:26 Anion Gap 14 mEq/L (8-16) 07/25/17 13:26 BUN 9 mg/dL (7-23) 07/25/17 13:26 Creatinine 0.6 mg/dL (0.6-1.0) 07/25/17 13:26 Estimated GFR > 60 07/25/17 13:26 Glucose 180 mg/dL (70-100) H 07/25/17 13:26 Calcium 9.0 mg/dL (8.5-10.4) 07/25/17 13:26 Troponin I < 0.012 ng/mL (0.000-0.034) 07/25/17 13:26 NT-Pro-B Natriuret Pep 190 pg/mL (0-125) H 07/25/17 13:26 Visualized and Interpreted Chest x-ray results: Yes Chest X-Ray results: no infiltrate Visualized and Interpreted EKG results: Yes EKG Interpretation: Positive for: normal sinsus rhythm Assessment & Plan Assessment: Chest pain - concerning for unstable angina given history. Initial EKG non- ischemic. Trop negative. Pain relieved by NTG. -admit to PCU, monitor on telemetry -Full dose ASA now, cont daily ASA, plavix, BB (increase to 75 mg BID), statin -nitro-bid q6h, prn morphine for pain -no indication for heparin with nl EKG and trop, would reconsider if pain worsens or f/u trops elevated -discussed with cards, plan for nuc stress test in am if trops neg, o/w angiogram if positive trop -cont ranexa Asthma - no e/o acute exacerbation -cont home inhalers once med rec completed -on chronic prednisone DM - cont Lantus/Lispro when med rec completed Hypertension - fair control, cont home meds, increased metoprolol dose as above Hyperlipidemia - cont statin Full code DVT PPLX - SCD's, defer pharm for now as may warrant intervention Dispo - obs
[2017-07-25] MEDS ORDERED: PROTOCOL MAGNESIUM 1 DOSE IV PRN (17:12)
--- NOTE | 2017-07-25 17:35 | GCON ---
[f rep st] CONSULTATION CARDIOLOGY CONSULTATION CHIEF COMPLAINT: Chest pain. HISTORY OF PRESENT ILLNESS: Patient is admitted to the hospital with anterior chest discomfort. She was doing fine today, and then she developed in the center of her chest a little bit of a burning sensation. There was discomfort in the center of the chest that was inside the chest. The chest pain went away when she was given nitroglycerin. It has not come back. It was a relativel y minor chest pain. There was some discomfort in the back of her jaws. She did not have shortness of breath, orthopnea, PND, dyspnea on exertion. No pleuritic chest pain. No fever, chills, cough. No nausea, vomiting, diarrhea, or constipation. She has not had abdominal pain recently. She has been taking her medications and doing quite well. She has no neurologic complaints. No uppe r respiratory tract symptoms. No shortness of breath, runny nose, dysuria, frequency, arthralgias, h ot swollen joints, major rashes. No rheumatic disease. She has a history of coronary artery disease with stenting in 2011 and 2013, and a CABG a year ago or 2 years ago (she is not sure when it was) that showed no significant obstructive disease, and she lyn d discomfort that was somewhat similar to what she has right now. CARDIAC RISK FACTORS: Her cardiac risk factors are positive for marked obesity, hypertension, diabet es mellitus, lipids, coronary artery disease that is known. Cardiac risk factors are negative for hyperuricemia, family history of premature coronary disease, or myocardial infarction herself. REVIEW OF SYSTEMS: 10-point review of systems was negative except as noted. The patient is hypothyroid, and she has a history of sleep apnea. The patient is status post 2 hip replacements. Status post 2 knee replacements. She has had problem with balance for 12 months. She has a difficult time exercising. PAST MEDICAL HISTORY: She has a history of asthma since childhood. She has a history of hypothyroidism and is on medication for that. FAMILY HISTORY: No family history of premature coronary disease. No history of unexplained sudden d eath at a young age. ALLERGIES: Allergies are many: Penicillin, sulfa, etc. Please see the list. MEDICATIONS: Albuterol, clopidogrel, Dramamine, magnesium oxide, Singulair, Nitrostat, Flexeril, Jaret adryl, Lopressor, DuoNeb, aspirin, , Humalog, primidone, fluticasone, more insulin, magnesi um oxide, nitrofurantoin, amlodipine, metformin, tramadol, atorvastatin, lisinopril, Advair, Lasix, _ , and Spiriva. SOCIAL HISTORY: She was born in the [place], [place]. 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 She lives with her . She loves her work. She has a 27-year-old son who is healthy, and he is going to . She has not been able exercise well because of her many arthritic complaints. PHYSICAL EXAMINATION: VITAL SIGNS: Blood pressure 138/76, heart rate 74, respiratory rate 14, tempe rature afebrile. GENERAL: She is resting comfortably in a hospital bed. HEENT: Pupils equal and r eactive. Mucous membranes and mouth moist. NECK: Supple. CARDIOVASCULAR: S1, S2. Soft systolic murmur in the left sternal border. No diastolic murmur. No S3, S4. No rubs. PULMONARY: Rhonchi. No rales, wheezing, or dullness. ABDOMEN: Soft, nontender, without masses. EXTREMITIES: No edema , inflammation, or ulceration. NEUROLOGIC: Cranial nerves 2-12 grossly normal. Motor and sensory i ntact. PSYCH: No obvious anxiety or depression. SKIN: Age-related changes. DIAGNOSTIC STUDIES: EKG shows no acute changes. LABORATORY DATA: White count 8.0, hematocrit 41, platelets 197. Sodium 138, potassium 4.4, chloride 99, CO2 25, BUN 0.9, creatinine 0.6, glucose 180. BNP is 190. ASSESSMENT AND PLAN: 1. Coronary artery disease. 2. Known chest pain. 3. Obesity. 4. Hypertension. 5. Diabetes mellitus. 6. Dyslipidemia. She is a woman with many risk factors, with known coronary disease, who had chest pain that was relie juan by nitroglycerin. Her EKG and troponins are negative now. If they remain negative in the [facility], we could do a stress test and try very hard to see if we can induce with nuclear medicine imaging evidence of ischemia. If, however, her troponins or chest pain recur, we can proceed right to coronary angiography. There is no indication for angiography right now. She is best chest pain-free and feels well. So we will repeat lipids and we will decide in the morning which way is the best approach for her. S he and I have talked about this, and she likes the idea of doing it without an invasive procedure if we think that is the appropriate way to go tomorrow. In the meantime, she is a woman who had a heart rate when she first came in of 81. She is not adequa tely beta blocked, and we will increase her metoprolol. From a point of view of necessity for procedures within adequate beta blockade, to cath her just destiny use of unknown chest pain syndrome is maybe not necessary. Her pulses are full and equal. There is nothing to suggest disease of great vessels. There is nothi ng to suggest disease from pulmonary vascular point of view such as thromboembolic disease. There is nothing to suggest GI pathology such as a paraesophageal hernia, early GI bleed or early acute abdom en. She is currently feeling very well, and we will watch her closely. 1. Hypothyroidism. 2. Childhood asthma. Thank you very much for asking us to see this complex patient. I have talked to the hospitalist evert wang and the emergency room physician. /[id number]/MODL
[2017-07-25] MEDS: ATORVASTATIN CALCIUM 40 MG TAB PO SCH (19:06)
[2017-07-25] MEDS ORDERED: IPRATROPIUM/ALBUTEROL 3 ML DEYVIAL IH PRN (19:48)
[2017-07-25] MEDS ORDERED: diphenhydrAMINE 25 MG CAP PO PRN ×2 (19:48→19:55)
[2017-07-25] MEDS ORDERED: ALBUTEROL 60 PUFFS/8 GM MDI IH PRN (19:48)
[2017-07-25] MEDS ORDERED: PROMETHAZINE HCL 25 MG TAB PO PRN (19:48)
[2017-07-25] MEDS ORDERED: D50W 25 GM/50 ML VIAL IVP PRN (19:53)
[2017-07-25] MEDS: FLUTICASONE/SALMETER 500/50MCG DISKUS IH SCH (20:16)
[2017-07-25] MEDS ORDERED: MAGNESIUM SULF 1 GM/DEXTROSE 100 ML IV ONE (20:51)
[2017-07-25] MEDS: MONTELUKAST SODIUM 10 MG TAB PO SCH (21:35)
[2017-07-25] MEDS: METOPROLOL TARTRATE 50 MG TAB PO SCH (21:35)
[2017-07-25] MEDS: GABAPENTIN 100 MG CAP PO PRN (21:48)
[2017-07-25] MEDS ORDERED: MDI IH PRN (22:00)
[2017-07-25] MEDS ORDERED: ALBUTEROL IH PRN (22:00)
[2017-07-25] MEDS: amLODIPine BESYLATE 5 MG TAB PO SCH (22:12)
[2017-07-25] MEDS ORDERED: traMADol 50 MG TAB PO PRN (22:42)
[2017-07-25] MEDS: TIOTROPIUM INHALER 18 MCG/DOSE 5 DOSE/MDI IH SCH (23:14)
[2017-07-25] MEDS: PRIMIDONE 50 MG TAB PO SCH (23:16)
[2017-07-25] MEDS: NITROGLYCERIN 2% 1 GM PACKET TP SCH (23:20)
[2017-07-26] MEDS: ATORVASTATIN CALCIUM 40 MG TAB PO SCH ×2 (00:05→22:53)
[2017-07-26] MEDS: NITROGLYCERIN 2% 1 GM PACKET TP SCH ×6 (01:10→23:47)
[2017-07-26] MEDS: INSULIN LISPRO 100 UNIT/ML SC SCH ×5 (01:11→23:39)
[2017-07-26] MEDS: Insulin Glargine,Hum.Rec.Anlog [Basaglar Kwikpen U-100] SQ SCH ×2 (01:11→23:39)
[2017-07-26] MEDS: GABAPENTIN 100 MG CAP PO PRN ×2 (01:39→09:47)
[2017-07-26 04:47] LABS: PLATELET COUNT 186 10^3/uL (150-400)
[2017-07-26 04:53] LABS: INR 1.07 (0.83-1.16); PROTIME(PATIENT) 14.1 SEC (12.0-15.0)
[2017-07-26] MEDS: LEVOTHYROXINE 112 MCG TAB PO SCH ×2 (07:27→09:48)
[2017-07-26] MEDS ORDERED: ASPIRIN EC 325 MG TAB PO ONE (08:00)
[2017-07-26] MEDS ORDERED: diphenhydrAMINE 25 MG CAP PO ONE (08:00)
[2017-07-26] MEDS ORDERED: DIAZEPAM 5 MG TAB PO ONE (08:00)
[2017-07-26] MEDS ORDERED: FAMOTIDINE 20 MG TAB PO ONE (08:00)
[2017-07-26] MEDS ORDERED: ASPIRIN EC 81 MG TAB PO SCH (09:00)
--- NOTE | 2017-07-26 09:21 | PDPROPOC ---
Sedation Plan of Care Sedation Plan of Care: mental status noted ASA Classification: ASA 2 Planned drugs: fentanyl, midazolam Mallampati Score: Class 1 Mallampati Reference Image: Patient passed 3-3-2 rule?: Yes
[2017-07-26] MEDS: RIFAXIMIN 550 MG TAB PO SCH ×2 (09:44→20:26)
[2017-07-26] MEDS: MAGNESIUM OXIDE 400 MG TAB PO SCH ×2 (09:44→19:13)
[2017-07-26] MEDS: METOPROLOL TARTRATE 50 MG TAB PO SCH ×2 (09:48→20:26)
[2017-07-26] MEDS: PANTOPRAZOLE SODIUM 40 MG TAB PO SCH (09:49)
[2017-07-26] MEDS: CLOPIDOGREL BISULFATE 75 MG TAB PO SCH (09:49)
[2017-07-26] MEDS: FLUTICASONE/SALMETER 500/50MCG DISKUS IH SCH ×2 (09:54→20:43)
[2017-07-26] MEDS ORDERED: NS 1,000 ML IV SCH (10:00)
--- NOTE | 2017-07-26 10:31 | ECHO ---
[email or web address] [address] Main: [phone] Fax: Transthoracic Echocardiogram Name: MIL ISAAC MR#: [id number] Study Date: 07/26/2017 Study Time: 08:01 AM Date of : 1950 Age: 67 year(s) Height: 162.6 cm (64 in.) Weight: 104.33 kg (230 lb.) BSA: 2.08 m2 Gender: Female Examination: Echo Indication: COPD/SOB/CP/history of stents (previous echos at [facility] [place] Image Quality: Contrast: Requested by: Junito Jewell BP: 144 mmHg/67 mmHg Heart Rate: Rhythm: Indication: COPD/SOB/CP/history of stents (previous echos at [facility] [place] Procedure Staff Member Of [employer]: Racheal Velazquez RDCS Reading Physician: Junito Jewell MD Requesting Provider: Conclusions: Normal size left ventricle. No LV hypertrophy. Normal global systolic LV function. EF is 72 %. No regional wall motion abnormality. Normal size right ventricle. The left atrium is mildly dilated. The right atrium is normal in size. The mitral valve is normal in appearance and function. Mild mitral valve regurgitation is present. The aortic valve is normal in appearance and function. The tricuspid valve is normal in appearance and function. Mild tricuspid regurgitation is present. The pulmonary artery pressure is normal. The pulmonic valve is normal in appearance and function. The aorta is normal. Measurements: Chambers Valvular Assessment AV/MV Valvular Assessment TV/PV Normal Normal Normal Name Value Range Name Value Range Name Value Range Ao Viviana (MM): 3.6 cm (2.2 cm-3.7 AV meanP mmHg ( - ) TR Vmax: 2.88 mm/s ( - ) cm) MV E Vmax: 1.01 m/s ( - ) TR PGmax: 33 mmHg ( - ) IVSd (2D): 0.8 cm (0.6 cm-1.1 MV A Vmax: 1.16 m/s ( - ) syst. PAP: 38 mmHg ( - ) cm) MV E/A: 0.87 ( - ) LVDd (2D): 4.9 cm (3.9 cm-5.3 cm) LVDs (2D): 3.0 cm (2.1 cm-4 cm) Patient: MIL ISAAC Study Date: 07/26/2017 Page 1 of 2 08:01 AM LVPWd (2D): 1.1 cm ( - ) LVEF (MOD4): 72 % (>=55 %) Continued Measurements: Chambers Valvular Assessment AV/MV Valvular Assessment TV/PV Name Value Name Value Name Value LADs: 3.9 cm MV E' Septal: 0.07 m/s CVP (est.): 5 mmHg LADs Lon.7 cm MV E/E' Septal: 13.60 LA Area: 21.3 cm2 MV E/E' Lateral: 16.20 Additional Vessels Name Value Ao Ascendin.2 cm Findings: Left Ventricle: Normal size left ventricle. No LV hypertrophy. Normal global systolic LV function. EF is 72 %. No regional wall motion abnormality. Right Ventricle: Normal size right ventricle. Left Atrium: The left atrium is mildly dilated. Right Atrium: The right atrium is normal in size. Mitral Valve: The mitral valve is normal in appearance and function. Mild mitral valve regurgitation is present. Aortic Valve: The aortic valve is normal in appearance and function. Tricuspid Valve: The tricuspid valve is normal in appearance and function. Mild tricuspid regurgitation is present. The pulmonary artery pressure is normal. Pulmonic Valve: The pulmonic valve is normal in appearance and function. Aorta: The aorta is normal. Pericardium: No pericardial effusion. (No Signature Object) Patient: MIL ISAAC Study Date: 07/26/2017 Page 2 of 2 08:01 AM [id number]
[2017-07-26] MEDS: LISINOPRIL 20 MG TAB PO SCH ×2 (10:35→10:46)
[2017-07-26] MEDS: FLUoxetine 20 MG CAP PO SCH (10:35)
[2017-07-26] MEDS ORDERED: FAMOTIDINE 20 MG TAB ONE (10:36)
[2017-07-26] MEDS ORDERED: DIAZEPAM 5 MG TAB ONE (10:37)
[2017-07-26] MEDS ORDERED: fentaNYL 100 MCG/2 ML INJ ONE (10:42)
[2017-07-26] MEDS ORDERED: MIDAZOLAM 2 MG/2 ML VIAL ONE ×3 (10:42→12:20)
[2017-07-26] MEDS ORDERED: LIDOCAINE 1% 300 MG/30 ML SDV ONE (10:42)
[2017-07-26] MEDS ORDERED: IOPAMIDOL (ISOVUE-370) 150 ML BTL IV ONE ×2 (10:43→12:08)
[2017-07-26] MEDS ORDERED: ADENOSINE 90 MG/30 ML VIAL IV ONE (12:12)
[2017-07-26] MEDS ORDERED: BIVALIRUDIN 250 MG/5 ML VIAL IV ONE (12:19)
--- NOTE | 2017-07-26 13:01 | CPIP ---
[f rep st] INVASIVE CARDIAC PROCEDURE DATE OF PROCEDURE: 07/26/2017 PROCEDURE: 1. Coronary angiography. 2. Fractional flow reserve of left anterior descending coronary artery. INDICATION: The patient is a 67-year-old female with known coronary artery disease who presented to the hospital with an acute coronary syndrome. She was taken to the cardiac catheterization laborator y by Dr. Junito Jewell. Coronary angiography was notable for an intermediate grade lesion involving her mid left anterior descending coronary artery. I was consulted to perform FFR of this lesion to d etermine severity. Access and coronary angiography were performed by Dr. Junito Jewell, FFR of the l eft anterior descending coronary artery. A 6-Slovak JL4 was advanced to the left main coronary arter y and images obtained. Angiography confirmed the presence of an intermediate grade lesion involving the mid left anterior descending coronary artery which appeared to be approximately 70% in severity. An FFR wire was placed in the distal vessel and position verified by angiography. IV adenosine was infused and FFR obtained. The FFR after 2 minutes was 0.90 indicating no flow limitation. COMPLICATIONS: None. CONCLUSIONS: Intermediate grade lesion involving the mid left anterior descending coronary artery wi th no evidence of flow limitation by FFR. /[id number]/MODL
--- NOTE | 2017-07-26 13:16 | CPIP ---
[f rep st] INVASIVE CARDIAC PROCEDURE DATE OF PROCEDURE: 07/26/2017 PROCEDURE PERFORMED: Left heart catheterization, left ventriculogram, right and left coronary arteri ogram. INDICATION: The patient had discomfort in her chest that was relieved by nitroglycerin yesterday. S he has had stents to her ramus intermedius vessel in 2011 and 2013. She had coronary angiography with followup FFR by Dr. Sg Garcia. Now, she has developed anterior chest discomfort that went away with nitroglycerin. She is obese, hyperlipidemic, hypertensive, diabetic, and has known solorzano ry disease. She continued to have chest pain after 14 hours in the hospital, relieved with nitroglycerin, and it was elected to bring her [facility]. Originally, we had talked about doing a stress test if her troponins did not move and if her pain did not recur, but her troponin bumped up to the intermediate range and her pain recurred and it is much safer, considerably in my opinion, to not put her on the treadmill, but to in fact go ahead with invasive testing. CONCLUSION: The patient has no high-grade obstructive disease present at this time. The stents are perfect in the ramus intermedius. She has a 50% proximal ramus stenosis. She has a 65% mid LAD sten osis. She has a 25% distal right coronary stenosis. FFR was obtained and showed no significant stenosis and nothing that required intervention. She tolerated the procedure well. She is waking up as I am dictating. FINDINGS: Left heart catheterization: Left ventricular end-diastolic pressure 12 mmHg. No aortic stenosis. Left ventriculogram: Normal left ventricular chamber dimension. Normal left ventricular systolic fu nction. No significant mitral regurgitation. Normal left ventricular ejection fraction. Left and right coronary arteriography. Right coronary artery is widely patent. It is dominant and has a 20% stenosis down the proximal port ion of the distal vessel. The left main coronary is negative. The left anterior descending artery has a 65% stenosis in the mid section that was present before. The ramus intermedius has a 40-50% proximal stenosis and the stents are widely patent and distal flow is excellent. The circumflex coronary artery has intimal disease present with no high-grade obstruc tion. Interventional consultation was obtained with my partner, Dr. Richardson, and he is going to go ahead wit h FFR. The patient has tolerated the procedure well. It would appear that the pictures are not significantl y different than earlier. However, because the patient is getting pain ongoing and has all these ris k factors and known coronary disease, even though it seems highly unlikely the FFR would document sig nificant obstructive disease, we are proceeding with it so that we can rule out any issues that will come up if she keeps visiting the hospital. /[id number]/MODL
--- NOTE | 2017-07-26 14:05 | ASMTCMCOM ---
CM Note CM Note Notes: 07/26/2017 Case Management Note Discussed pt during multi disciplinary rounds this morning. Pt admitted with chest pain with cath planned for today. There are no case management d/c needs identified d/t pt age, marital status and activity levels prior to admission. There are no PT evals ordered at this time. Case Management d/c poc: anticipating independent with follow up as directed. Case Management available if needs change. Date Signed: 07/26/2017 02:05 PM Electronically Signed By:Heavenly Ahn RN
[2017-07-26] MEDS ORDERED: OXYCODONE/APAP 5/325 TAB PO PRN (14:28)
[2017-07-26] MEDS ORDERED: ONDANSETRON 4 MG/2 ML VIAL IVP PRN (14:28)
[2017-07-26] MEDS ORDERED: HYDROCODONE/APAP 5/325 TAB PO PRN (14:28)
[2017-07-26] MEDS ORDERED: NITROGLYCERIN 0.4 MG BTL SL PRN (14:28)
[2017-07-26] MEDS ORDERED: ATROPINE SULFATE 1 MG/10 ML SYR IVP PRN (14:28)
--- NOTE | 2017-07-26 16:08 | PDDCSUM ---
Discharge Summary Discharge Summary: DISCHARGE DIAGNOSES: -chest pain, resolved, noncardiac -rule out for myocardial infarction -known diffuse coronary artery disease status post multiple revascularization procedures but no evidence of flow limiting stenosis now based on angiography and functional flow reserve testing -chronic hypoxemic respiratory failure at her baseline -chronic reactive airway disease stable -Diabetes mellitus stable CONSULTANTS: Dr. Armani Jewell and Dr. Gwyn Richardson PROCEDURES: Coronary angiography Coronary functional flow reserve testing HOSPITAL COURSE SUMMARY: This patient with known diffuse coronary disease status post multiple revascularization procedures comes in with chest pain at this time. There is no heart failure or arrhythmia and she has ruled out for myocardial infarction. Her pain is resolved. There is no respiratory issues. She is at her chronic baseline oxygen level. She is walking in the [place] without any difficulties. The patient had symptoms for strongly suggestive of angina. She therefore underwent coronary angiography. This showed diffuse coronary disease but with little change from her most recent angiography. The most significant lesion was a 70% mid LAD lesion. This was study with functional flow reserve and she did not have flow limiting stenosis based on that study. She tolerated the procedure well. At this point she is stable for discharge to home. There are no changes in her medications overall. She will follow up at [facility]. PENDING TEST RESULTS: None MEDICATION CHANGES: None Notably she had angiography today so she is instructed not to take her metformin and till 2 nights from now FOLLOW-UP PLAN: At [facility] within 1 month
[2017-07-26] MEDS: MONTELUKAST SODIUM 10 MG TAB PO SCH (20:26)
[2017-07-26] MEDS: PRIMIDONE 50 MG TAB PO SCH (20:26)
[2017-07-26] MEDS: amLODIPine BESYLATE 5 MG TAB PO SCH (20:27)
[2017-07-26] MEDS: TIOTROPIUM INHALER 18 MCG/DOSE 5 DOSE/MDI IH SCH (20:43)
[2017-07-27] MEDS: LEVOTHYROXINE 112 MCG TAB PO SCH (05:50)
[2017-07-27 08:42] VITALS: BP 148/95
[2017-07-27] MEDS ORDERED: ASPIRIN EC 81 MG TAB PO SCH (09:00)
--- NOTE | 2017-07-27 09:55 | PDDCSUM ---
Discharge Summary Discharge Summary: The patient stayed overnight last night due to feeling mildly dizzy, and I think she was very concerned about balance as she had some balance difficulties after she went home when she had her hip replaced. At this time she is feeling fine up walking in the halls, no dizziness no other acute symptoms. She is stable for discharge to home. DISCHARGE DIAGNOSES: -chest pain, resolved, noncardiac -rule out for myocardial infarction -known diffuse coronary artery disease status post multiple revascularization procedures but no evidence of flow limiting stenosis now based on angiography and functional flow reserve testing -chronic hypoxemic respiratory failure at her baseline -chronic reactive airway disease stable -Diabetes mellitus stable CONSULTANTS: Dr. Armani Jewell and Dr. Gwyn Richardson PROCEDURES: Coronary angiography Coronary functional flow reserve testing HOSPITAL COURSE SUMMARY: This patient with known diffuse coronary disease status post multiple revascularization procedures comes in with chest pain at this time. There is no heart failure or arrhythmia and she has ruled out for myocardial infarction. Her pain is resolved. There is no respiratory issues. She is at her chronic baseline oxygen level. She is walking in the [place] without any difficulties. The patient had symptoms for strongly suggestive of angina. She therefore underwent coronary angiography. This showed diffuse coronary disease but with little change from her most recent angiography. The most significant lesion was a 70% mid LAD lesion. This was study with functional flow reserve and she did not have flow limiting stenosis based on that study. She tolerated the procedure well. At this point she is stable for discharge to home. There are no changes in her medications overall. She will follow up at [facility]. PENDING TEST RESULTS: None MEDICATION CHANGES: None Notably she had angiography so she is instructed not to take her metformin and till tomorrow night July 28 FOLLOW-UP PLAN: At [facility] within 1 month
[2017-07-27] MEDS: INSULIN LISPRO 100 UNIT/ML SC SCH (10:41)
[2017-07-27] MEDS: CLOPIDOGREL BISULFATE 75 MG TAB PO SCH (10:51)
[2017-07-27] MEDS: FLUoxetine 20 MG CAP PO SCH (10:51)
[2017-07-27] MEDS: RIFAXIMIN 550 MG TAB PO SCH (10:51)
[2017-07-27] MEDS: PANTOPRAZOLE SODIUM 40 MG TAB PO SCH (10:51)
[2017-07-27] MEDS: METOPROLOL TARTRATE 50 MG TAB PO SCH (10:52)
[2017-07-27] MEDS: MAGNESIUM OXIDE 400 MG TAB PO SCH (10:52)
[2017-07-27] MEDS: LISINOPRIL 20 MG TAB PO SCH (10:52)
[2017-07-27] MEDS: FLUTICASONE/SALMETER 500/50MCG DISKUS IH SCH (11:19)
--- NOTE | 2017-07-27 17:11 | ASDISCHSUM ---
Discharge Information Plan Status:Home with No Needs Medically Cleared to Leave:07/27/2017 Discharge Date:07/27/2017 12:53 PM CM D/C Disposition:Home, Routine, Self-Care ADT D/C Disposition:Home, Routine, Self-Care Projected Discharge Date:07/27/2017 12:53 PM Transportation at D/C:Family Discharge Delay Reason: Follow-Up Date:07/27/2017 12:53 PM Discharge Slot: Final Diagnosis: Placement Information Patient Contact Information Contact Name:JOHAN Relationship: Address:[address] [place] Alternate Phone: [facility]/Zip Code:[place] [address] Email: Financial Information Financial Class:[employer] Primary Plan Desc:[facility] Primary Plan Number:[id number] Secondary Plan Desc: Secondary Plan Number: Assessment Information LACE LACE Length of stay for Answers: 1 day current admission Acuity / Level of Answers: No Care: Did the patient have an inpatient admission? Comorbidities - select Answers: Chronic pulmonary disease all that apply Coronary Artery Disease Diabetes (uncontrolled or controlled) Other Notes: HTN, hyperlipidemia, SV T # of Emergency department Answers: 1-2 visits in the last 6 months Score: 8 Date Signed: 07/27/2017 05:10 PM Electronically Signed By:Heavenly Ahn RN [facility] CM Progress Note CM Note CM Note Notes: 07/26/2017 Case Management Note Discussed pt during multi disciplinary rounds this morning. Pt admitted with chest pain with cath planned for today. There are no case management d/c needs identified d/t pt age, marital status and activity levels prior to admission. There are no PT evals ordered at this time. Case Management d/c poc: anticipating independent with follow up as directed. Case Management available if needs change. Date Signed: 07/26/2017 02:05 PM Electronically Signed By:Heavenly Ahn RN Intervention Information
== END 2017-07-27 12:53 | disposition home or self-care (01) ==
LOC: EDUNIT# → INTOOBSV 15:26 → F2W 16:46
PROVIDERS: ADMIT Hospitalist; ATTEND Internal Medicine
PROC: 4A023N8 Measurement of Cardiac Sampling and Pressure, Bilateral, Percutaneous Approach (ICD-10-PCS; principal; 2017-07-25)
PROC: B2151ZZ Fluoroscopy of Left Heart using Low Osmolar Contrast (ICD-10-PCS; principal; 2017-07-25)
PROC: B2111ZZ Fluoroscopy of Multiple Coronary Arteries using Low Osmolar Contrast (ICD-10-PCS; principal; 2017-07-25)
PROC: 4A033BC Measurement of Arterial Pressure, Coronary, Percutaneous Approach (ICD-10-PCS; 2017-07-25)
DX: I25.119 Atherosclerotic heart disease of native coronary artery with unspecified angina pectoris (principal); Z95.5 Presence of coronary angioplasty implant and graft; Z95.1 Presence of aortocoronary bypass graft; I10 Essential (primary) hypertension; J45.909 Unspecified asthma, uncomplicated; R06.02 Shortness of breath; E03.9 Hypothyroidism, unspecified; E11.9 Type 2 diabetes mellitus without complications; Z96.643 Presence of artificial hip joint, bilateral; Z96.653 Presence of artificial knee joint, bilateral; Z82.49 Family history of ischemic heart disease and other diseases of the circulatory system; E78.5 Hyperlipidemia, unspecified; E66.9 Obesity, unspecified; Z68.39 Body mass index [BMI] 39.0-39.9, adult
CPT/HCPCS: 71045; 93005; 93306; 93458; 93571; 99285; C1769; C1887; G0378; C1760; J0153; J0583; J1644; J1815; J2250; J3010; J3475; Q9967

== ENCOUNTER → 2017-09-22 | Outpatient (CLI) | payer OTHER | LOC: BMCIMAGING 12:26 | PROVIDERS: ATTEND Internal Medicine | DX: S22.31XA Fracture of one rib, right side, initial encounter for closed fracture (principal) | CPT/HCPCS: 71101-PO ==

== ENCOUNTER → 2017-11-30 | Outpatient (CLI) | payer OTHER | LOC: FIMAGING 12:15 | PROVIDERS: ATTEND Psychiatry & Neurology Neurology | DX: M50.31 Other cervical disc degeneration, high cervical region (principal); M50.33 Other cervical disc degeneration, cervicothoracic region; M48.02 Spinal stenosis, cervical region; M48.03 Spinal stenosis, cervicothoracic region ==

== ENCOUNTER → 2017-12-01 | Outpatient (CLI) | payer OTHER | LOC: FIMAGING 19:34 | PROVIDERS: ATTEND Psychiatry & Neurology Neurology | DX: R51 Headache (principal); J32.0 Chronic maxillary sinusitis; R90.82 White matter disease, unspecified ==

== ENCOUNTER → 2018-02-17 | Outpatient (CLI) | payer OTHER | LOC: FIMAGING 13:04 | PROVIDERS: ATTEND Physician Assistant | DX: R18.8 Other ascites (principal); R16.1 Splenomegaly, not elsewhere classified ==

== ENCOUNTER → 2018-03-23 | Outpatient (CLI) | payer OTHER | LOC: BMCIMAGING 15:40 | PROVIDERS: ATTEND Internal Medicine | DX: M54.9 Dorsalgia, unspecified (principal); M43.16 Spondylolisthesis, lumbar region ==